=== PATIENT | female | born 1950 | race Caucasian/White ===

== ENCOUNTER → 2016-04-22 | Outpatient (CLI) | payer MEDICARE, OTHER, SELFPAY | LOC: MW.RT 19:45 | CPT/HCPCS: 95810 ==

== ENCOUNTER 2018-10-21 19:33 | Observation (INO) | payer MEDICARE, OTHER ==
[2018-10-21] MEDS ORDERED: Ondansetron 4 MG/2 ML SDV IVPUSH ONE (19:46)
[2018-10-21] MEDS ORDERED: diphenhydrAMINE 50 MG/ML SDV IVPUSH ONE (19:46)
[2018-10-21] MEDS ORDERED: Aspirin 81 MG Tab.Chew PO ONE (19:46)
[2018-10-21] MEDS ORDERED: Sodium Chloride 0.9% 2.5 ML Syringe FLUSH PRN (19:46)
[2018-10-21] MEDS ORDERED: Sodium Chloride 0.9% 10 ML Syringe FLUSH PRN (19:46)
[2018-10-21] MEDS ORDERED: methylPREDNISolone Sodium Succinate 125 MG/2 ML SDV IVPUSH ONE (19:51)
--- NOTE | 2018-10-21 20:07 | EDM.PDOC ---
ED HPI GENERAL MEDICAL PROBLEM - General Chief Complaint: Chest Pain Stated Complaint: CHEST PAIN Time Seen by Provider: 10/21/18 19:41 - History of Present Illness INITIAL COMMENTS - FREE TEXT/NARRATIVE: HISTORY AND PHYSICAL: History of present illness: Patient is 68-year-old white female history of atrial fibrillation presents with concern of chest pain this is left-sided and also radiates to her left infrascapular region she's had nausea and vomiting she denies associated palpitations or diaphoresis she has had some exertional dyspnea. She denies prior CA or CVA Review of systems: As per history of present illness and below otherwise all systems reviewed and negative. Past medical history: As per history of present illness and as reviewed below otherwise noncontributory. Surgical history: As per history of present illness and as reviewed below otherwise noncontributory. Social history: No reported history of drug or alcohol abuse. Family history: As per history of present illness and as reviewed below otherwise noncontributory. Physical exam: HEENT: Atraumatic, normocephalic, pupils reactive, negative for conjunctival pallor or scleral icterus, mucous membranes moist, throat clear, neck supple, nontender, trachea midline. Lungs: Clear to auscultation, breath sounds equal bilaterally, chest nontender. Heart: S1S2, regular, negative for clicks, rubs, or JVD. Abdomen: Soft, nondistended, nontender. Negative for masses or hepatosplenomegaly. Negative for costovertebral tenderness. Pelvis: Stable nontender. Genitourinary: Deferred. Rectal: Deferred. Extremities: Atraumatic, negative for cords or calf pain. Neurovascular unremarkable. Neuro: Awake, alert, oriented. Cranial nerves II through XII unremarkable. Cerebellum unremarkable. Motor and sensory unremarkable throughout. Exam nonfocal. Diagnostics: CBC CMP troponin PT/INR CTA chest BNP lipase Therapeutics: 1 L bolus nitro paste 1 inch to chest wall Zofran 4 mg IV Solu-Medrol 25 mg IV Benadryl 50 mg IV aspirin Impression: #1 chest pain #2 history of atrial fibrillation #3 vomiting Definitive disposition and diagnosis as appropriate pending reevaluation and review of above. Chest Pain Score (Numeric/FACES): 2 - Related Data Allergies Allergy/AdvReac Type Severity Reaction Status Date / Time cefaclor [facility] Allergy Unknown Hives Verified 10/22/18 07:12 oxaprozin [From [facility]] Allergy Unknown Hives Verified 10/22/18 07:12 sulfamethoxazole Allergy Unknown Redness Verified 10/22/18 07:12 [From Bactrim] trimethoprim [From Bactrim] Allergy Unknown Hives Verified 10/22/18 07:12 hydromorphone HCl Allergy Disorientat Verified 10/22/18 07:12 [From Dilaudid] ion Home Meds: Home Meds Levothyroxine Sodium 50 mcg PO DAILY 06/22/13 [History] Omeprazole [Prilosec] 20 mg PO ASDIRECTED 11/06/13 [History] Aspirin 81 mg PO DAILY 10/21/18 [History] Metoprolol Succinate [Kapspargo Sprinkle] 25 mg PO DAILY 10/21/18 [History] Propafenone HCl [Propafenone] 300 mg PO DAILY 10/21/18 [History] Cetirizine HCl [Zyrtec] 10 mg PO DAILY 10/22/18 [History] Cholecalciferol (Vitamin D3) [Vitamin D3] 5,000 unit PO DAILY 10/22/18 [History] Past Medical History HEENT History: Reports: None Cardiovascular History: Reports: Afib Respiratory History: Reports: Asthma Gastrointestinal History: Reports: GERD Genitourinary History: Reports: None [employer] History: Reports: None Musculoskeletal History: Reports: None Neurological History: Reports: None Psychiatric History: Reports: None Endocrine/Metabolic History: Reports: None Hematologic History: Reports: None Immunologic History: Reports: None Oncologic (Cancer) History: Reports: None Dermatologic History: Reports: None - Infectious Disease History Infectious Disease History: Reports: None Social & Family History - Tobacco Use Smoking Status *Q: Never Smoker - Recreational Drug Use Recreational Drug Use: No ED ROS GENERAL - Review of Systems Review Of Systems: ROS reveals no pertinent complaints other than HPI. ED EXAM, GENERAL - Physical Exam Exam: See Below (See dictation) Course - Vital Signs Last Recorded V/S: Last Vital Signs Temp 36.2 C 10/22/18 12:00 Pulse 73 10/22/18 12:00 Resp 18 10/22/18 12:00 BP 122/53 L 10/22/18 12:00 Pulse Ox 98 10/22/18 12:00 - Orders/Labs/Meds Orders: Active Orders 24 hr Category Date Time Status CULTURE URINE [RM] Stat Lab 10/21/18 21:43 Received Labs: Laboratory Tests 10/21/18 10/21/18 10/21/18 Range/Units 19:38 19:38 19:38 WBC 8.90 (4.0-11.0) K/uL RBC 4.72 (4.30-5.90) M/uL Hgb 14.7 (12.0-16.0) g/dL Hct 45.5 (36.0-46.0) % MCV 96.4 (80.0-98.0) fL MCH 31.1 (27.0-32.0) pg MCHC 32.3 (31.0-37.0) g/dL RDW Std Deviation 51.7 (28.0-62.0) fl RDW Coeff of Anil 15 (11.0-15.0) % Plt Count 279 (150-400) K/uL MPV 9.00 (7.40-12.00) fL Neut % (Auto) 80.7 H (48.0-80.0) % Lymph % (Auto) 15.1 L (16.0-40.0) % Isabela % (Auto) 2.4 (0.0-15.0) % Eos % (Auto) 1.6 (0.0-7.0) % Baso % (Auto) 0.2 (0.0-1.5) % Neut # (Auto) 7.2 H (1.4-5.7) K/uL Lymph # (Auto) 1.3 (0.6-2.4) K/uL Isabela # (Auto) 0.2 (0.0-0.8) K/uL Eos # (Auto) 0.1 (0.0-0.7) K/uL Baso # (Auto) 0.0 (0.0-0.1) K/uL Nucleated RBC % 0.0 /100WBC Nucleated RBCs # 0 K/uL INR 0.94 Sodium 139 (136-145) mmol/L Potassium 3.9 (3.5-5.1) mmol/L Chloride 104 (98-107) mmol/L Carbon Dioxide 25.0 (21.0-32.0) mmol/L BUN 19 H (7.0-18.0) mg/dL Creatinine 0.7 (0.6-1.0) mg/dL Est Cr Clr Drug Dosing 67.34 mL/min Estimated GFR (MDRD) > 60.0 ml/min Glucose 123 H (74-106) mg/dL Calcium 8.9 (8.5-10.1) mg/dL Total Bilirubin 0.5 (0.2-1.0) mg/dL AST 16 (15-37) IU/L ALT 22 (14-63) IU/L Alkaline Phosphatase 76 (46-116) U/L Troponin I < 0.050 (0.000-0.056) ng/mL B-Natriuretic Peptide (<100) PG/ML Total Protein 6.1 L (6.4-8.2) g/dL Albumin 3.2 L (3.4-5.0) g/dL Globulin 2.9 (2.6-4.0) g/dL Albumin/Globulin Ratio 1.1 (0.9-1.6) Lipase 799 H (73-393) U/L Urine Color Urine Appearance Urine pH (5.0-8.0) Ur Specific [place] (1.001-1.035) Urine Protein (NEGATIVE) mg/dL Urine Glucose (UA) (NEGATIVE) mg/dL Urine Ketones (NEGATIVE) mg/dL Urine Occult Blood (NEGATIVE) Urine Nitrite (NEGATIVE) Urine Bilirubin (NEGATIVE) Urine Urobilinogen (<2.0) EU/dL Ur Leukocyte Esterase (NEGATIVE) Urine RBC (0-2/HPF) Urine WBC (0-5/HPF) Ur Epithelial Cells (NONE-FEW) Urine Bacteria (NEGATIVE) 10/21/18 10/21/18 Range/Units 19:38 21:43 WBC (4.0-11.0) K/uL RBC (4.30-5.90) M/uL Hgb (12.0-16.0) g/dL Hct (36.0-46.0) % MCV (80.0-98.0) fL MCH (27.0-32.0) pg MCHC (31.0-37.0) g/dL RDW Std Deviation (28.0-62.0) fl RDW Coeff of Anil (11.0-15.0) % Plt Count (150-400) K/uL MPV (7.40-12.00) fL Neut % (Auto) (48.0-80.0) % Lymph % (Auto) (16.0-40.0) % Isabela % (Auto) (0.0-15.0) % Eos % (Auto) (0.0-7.0) % Baso % (Auto) (0.0-1.5) % Neut # (Auto) (1.4-5.7) K/uL Lymph # (Auto) (0.6-2.4) K/uL [place] # (Auto) (0.0-0.8) K/uL Eos # (Auto) (0.0-0.7) K/uL Baso # (Auto) (0.0-0.1) K/uL Nucleated RBC % /100WBC Nucleated RBCs # K/uL INR Sodium (136-145) mmol/L Potassium (3.5-5.1) mmol/L Chloride (98-107) mmol/L Carbon Dioxide (21.0-32.0) mmol/L BUN (7.0-18.0) mg/dL Creatinine (0.6-1.0) mg/dL Est Cr Clr Drug Dosing mL/min Estimated GFR (MDRD) ml/min Glucose (74-106) mg/dL Calcium (8.5-10.1) mg/dL Total Bilirubin (0.2-1.0) mg/dL AST (15-37) IU/L ALT (14-63) IU/L Alkaline Phosphatase (46-116) U/L Troponin I (0.000-0.056) ng/mL B-Natriuretic Peptide 86 (<100) PG/ML Total Protein (6.4-8.2) g/dL Albumin (3.4-5.0) g/dL Globulin (2.6-4.0) g/dL Albumin/Globulin Ratio (0.9-1.6) Lipase (73-393) U/L Urine Color YELLOW Urine Appearance SLT CLOUDY Urine pH 5.5 (5.0-8.0) Ur Specific [place] 1.010 (1.001-1.035) Urine Protein NEGATIVE (NEGATIVE) mg/dL Urine Glucose (UA) NEGATIVE (NEGATIVE) mg/dL Urine Ketones NEGATIVE (NEGATIVE) mg/dL Urine Occult Blood NEGATIVE (NEGATIVE) Urine Nitrite NEGATIVE (NEGATIVE) Urine Bilirubin NEGATIVE (NEGATIVE) Urine Urobilinogen 0.2 (<2.0) EU/dL Ur Leukocyte Esterase TRACE H (NEGATIVE) Urine RBC 0-2 (0-2/HPF) Urine WBC 2-4 (0-5/HPF) Ur Epithelial Cells FEW (NONE-FEW) Urine Bacteria FEW (NEGATIVE) Meds: Medications Discontinued Medications Generic Name Dose Route Start Last Admin Trade Name Freq PRN Reason Stop Dose Admin Aspirin 324 mg 10/21/18 19:46 10/21/18 20:00 Aspirin PO 10/21/18 19:47 324 mg ONETIME ONE Administration Diphenhydramine HCl 50 mg 10/21/18 19:46 10/21/18 20:05 Benadryl IVPUSH 10/21/18 19:47 50 mg ONETIME ONE Administration Sodium Chloride 1,000 mls @ 999 mls/hr 10/21/18 20:08 10/21/18 20:05 Normal Saline IV 10/21/18 21:08 999 mls/hr .Bolus ONE Administration Sodium Chloride 1,000 mls @ 999 mls/hr 10/21/18 23:49 10/21/18 23:56 Normal Saline IV 10/22/18 00:49 999 mls/hr .Bolus ONE Administration Sodium Chloride 1,000 mls @ 125 mls/hr 10/22/18 01:30 10/22/18 08:58 Normal Saline IV 125 mls/hr ASDIRECTED ROZ Administration Iopamidol 75 ml 10/21/18 21:17 10/21/18 21:18 Isovue-370 (76%) IVPUSH 10/21/18 21:18 75 ml ONETIME ONE Administration Methylprednisolone Sodium Succinate 125 mg 10/21/18 19:51 10/21/18 20:08 Solu-Medrol IVPUSH 10/21/18 19:52 125 mg ONETIME ONE Administration Omeprazole 20 mg 10/23/18 07:30 Omeprazole PO Q48H ROZ Ondansetron HCl 4 mg 10/21/18 19:46 10/21/18 20:01 Zofran IVPUSH 10/21/18 19:47 4 mg ONETIME ONE Administration Aspirin [Aspirin] 81 1 each 10/22/18 11:00 10/22/18 11:43 Mg PO 1 each DAILY ROZ Administration Levothyroxine Sodium 1 each 10/22/18 11:00 10/22/18 11:43 [Levothyroxine PO 1 each Sodium] 50 Mcg ACBREAKFAST ROZ Administration Metoprolol Succinate 1 each 10/22/18 11:00 10/22/18 11:43 [Kapspargo Sprinkle PO 1 each ] 25 Mg DAILY ROZ Administration Propafenone HCl 300 mg 10/22/18 18:00 Rythmol PO QPM ROZ Sodium Chloride 10 ml 10/21/18 19:46 10/21/18 20:08 Saline Flush FLUSH 10 ml ASDIRECTED PRN Administration Keep Vein Open Sodium Chloride 2.5 ml 10/21/18 19:46 10/21/18 20:08 Saline Flush FLUSH 2.5 ml ASDIRECTED PRN Administration Keep Vein Open Departure - Departure Time of Disposition: 22:39 Disposition: Refer to Observation Condition: Good Clinical Impression: Chest pain, Pancreatitis - Discharge Information - My Orders Last 24 Hours: My Active Orders 10/21/18 21:43 CULTURE URINE [RM] Stat - Assessment/Plan Last 24 Hours: My Active Orders 10/21/18 21:43 CULTURE URINE [RM] Stat
[2018-10-21] MEDS ORDERED: Sodium Chloride 0.9% 1,000 ML IV ONE ×2 (20:08→23:49)
[2018-10-21 20:17] LABS: CHLORIDE,CL 104 mmol/L (98-107); SODIUM,NA 139 mmol/L (136-145)
[2018-10-21] MEDS ORDERED: Iopamidol 755 Mg/ML 100 ML Bottle IVPUSH ONE (21:17)
--- NOTE | 2018-10-21 22:30 | CT ---
INDICATION: Vomiting, chest pain TECHNIQUE: CT chest was acquired with 75 cc Isovue 370 IV contrast. COMPARISON: None FINDINGS: Cardiovascular structures: Heart size is normal. Thoracic aorta and main pulmonary artery are normal in caliber. Mediastinum and shira: No mass or adenopathy. Small hiatal hernia. Lungs: Clear. Pleura and pericardium: No effusions. Chest wall and axilla: No mass or adenopathy. Upper abdomen: Fluid filled, nondilated loops of colon. There are few colonic diverticula. There are also fluid filled loops of small bowel reaching a maximum diameter of 3.5 cm. Bones: No significant findings. IMPRESSION: No acute intrathoracic abnormality. Dilated loops of fluid-filled small bowel and fluid filled nondilated loops of colon. These findings could be due to obstruction or ileus. Consider CT abdomen pelvis for further evaluation. Small hiatal hernia. Please note that all CT scans at this facility use dose modulation, iterative reconstruction, and/or weight-based dosing when appropriate to reduce radiation dose to as low as reasonably achievable. Dictated by Chaya Avelar MD @ Oct 21 2018 10:07PM Signed by Dr. Chaya Avelar @ Oct 21 2018 10:28PM
[2018-10-22] MEDS: Sodium Chloride 0.9% 1,000 ML IV SCH ×2 (01:45→08:58)
[2018-10-22 07:56] LABS: CHLORIDE,CL 108 mmol/L (98-107); SODIUM,NA 140 mmol/L (136-145)
[2018-10-22] MEDS ORDERED: METOPROLOL SUCCINATE 25 MG PO SCH (11:00)
[2018-10-22] MEDS ORDERED: LEVOTHYROXINE SODIUM 50 MCG PO SCH (11:00)
[2018-10-22] MEDS ORDERED: ASPIRIN 81 MG PO SCH (11:00)
--- NOTE | 2018-10-22 11:54 | CT ---
Examination: CT Abdomen/Pelvis Indication: Diffuse abdominal pain. Comparison: Chest CT 1 day prior Technique: Contiguous axial CT images of the abdomen and pelvis were acquired after uneventful administration of IV contrast. Coronal and sagittal reformations generated and reviewed. Findings: On the prior chest CT, multiple dilated loops of small bowel were noted in the upper abdomen, concerning for obstruction or ileus. On the current exam, the small bowel distension is essentially resolved. Oral contrast is noted in the colon suggesting that there is no obstruction present. There is no bowel wall thickening. There is sigmoid diverticulosis without CT evidence of diverticulitis. Noncontrast appearance of liver, gallbladder, spleen, adrenal glands, and kidneys are unremarkable. Normal caliber of the abdominal aorta. Iliac veins and IVC are unremarkable. There is no enlarged inguinal, pelvic, retroperitoneal, or mesenteric lymphadenopathy. No pneumoperitoneum or free fluid. There is contrast in the urinary bladder. Uterus is unremarkable. Multiple phleboliths are noted in the pelvis. Visualized lung bases demonstrate some minimal dependent atelectasis. On the prior exam there is a large sliding hiatal hernia which is significantly decreased in size on the current examination. There are no acute or aggressive osseous abnormality is noted. Impression: 1. Bowel distention question on recent chest CT has resolved. There is no evidence of bowel obstruction or ileus. 2. No cause of abdominal pain identified. The appendix is normal. 3. Diverticulosis. No CT evidence of diverticulitis. Please note that all CT scans at this facility use dose modulation, iterative reconstruction, and/or weight-based dosing when appropriate to reduce radiation dose to as low as reasonably achievable. Dictated by Narciso Brown MD @ Oct 22 2018 11:43AM Signed by Dr. Narciso Brown @ Oct 22 2018 11:53AM
[2018-10-22 12:02] VITALS: BP 122/53
--- NOTE | 2018-10-22 12:11 | US ---
Exam: US right upper quadrant Comparison: CT from the same day Indication: Right upper quadrant pain Technique: Multiple grayscale and color Doppler images of the right upper quadrant are acquired. Findings: Liver: Normal liver echogenicity and contour. No liver lesions. No intra or extrahepatic biliary dilation. Common bile duct measures 3 mm. Gallbladder: No gallstones or sludge. No gallbladder wall thickening. No pericholecystic fluid. No sonographic Jade`s sign. Pancreas: Visualized portions are unremarkable. Right kidney: Limited views of the right kidney show no pelvocaliectasis. Right kidney measures 9.5 cm Impression: Unremarkable right upper quadrant ultrasound. Dictated by Narciso Brown MD @ Oct 22 2018 12:07PM Signed by Dr. Narciso Brown @ Oct 22 2018 12:08PM
--- NOTE | 2018-10-22 12:27 | PCM.HP.2 ---
H&P History of Present Illness - General Date of Service: 10/22/18 Admit Problem/Dx: Admission Diagnosis/Problem Admission Diagnosis/Problem Chest pain, rule out acute myocardial infarction Source of Information: Patient History Limitations: Reports: No Limitations - History of Present Illness Initial Comments - Free Text/Narative: patient is a 68-year-old female with a past medical history of hypothyroidism, atrial fibrillation, GERD and asthma; presenting last night with left-sided chest pain and pain radiating between her shoulder blades. Patient denied any palpitations and/or diaphoresis. Prior to pain developing states she was vomiting 5-6 times; nonbilious. Otherwise patient denies any shortness of breath , headache, confusion, diarrhea and/or constipation. Of note patient states she recently returned from [place]/vacation; states she ate and drank more alcohol during her six-day trip more than she normally does. Patient also states that she has had normal cholesterol in the past, no history of gallstones or significant history of alcohol abuse. Patient has not had episodes like this before in the past but has had palpitations secondary to her A. fib. Bedside a.m.: patient denies any new complaints. States she is feeling comfortable. Patient has no concerns at this time. Chest Pain Score (Numeric/FACES): 0 - Related Data Allergies/Adverse Reactions: Allergies Allergy/AdvReac Type Severity Reaction Status Date / Time cefaclor [From Ceclor] Allergy Unknown Hives Verified 10/22/18 07:12 oxaprozin [From Daypro] Allergy Unknown Hives Verified 10/22/18 07:12 sulfamethoxazole Allergy Unknown Redness Verified 10/22/18 07:12 [From Bactrim] trimethoprim [From Bactrim] Allergy Unknown Hives Verified 10/22/18 07:12 hydromorphone HCl Allergy Disorientat Verified 10/22/18 07:12 [From Dilaudid] ion Home Medications: Home Meds Levothyroxine Sodium 50 mcg PO DAILY 06/22/13 [History] Omeprazole [Prilosec] 20 mg PO ASDIRECTED 11/06/13 [History] Aspirin 81 mg PO DAILY 10/21/18 [History] Metoprolol Succinate [Kapspargo Sprinkle] 25 mg PO DAILY 10/21/18 [History] Propafenone HCl [Propafenone] 300 mg PO DAILY 10/21/18 [History] Cetirizine HCl [Zyrtec] 10 mg PO DAILY 10/22/18 [History] Cholecalciferol (Vitamin D3) [Vitamin D3] 5,000 unit PO DAILY 10/22/18 [History] Past Medical History HEENT History: Reports: Allergic Rhinitis, Impaired Vision Other HEENT History: glasses Cardiovascular History: Reports: Afib, Hypertension, SOB on Exertion, Other ( See Below) Other Cardiovascular History: lymphedema bilateral legs Respiratory History: Reports: Sleep Apnea Other Respiratory History: wears CPAP at home Gastrointestinal History: Reports: GERD Genitourinary History: Reports: None [employer] History: Reports: None Musculoskeletal History: Reports: Back Pain, Chronic, Osteoarthritis Other Musculoskeletal History: lumbar steriod injections- last one 09/22/18 Neurological History: Reports: None Psychiatric History: Reports: None Endocrine/Metabolic History: Reports: Hypothyroidism, Vitamin D Deficiency Hematologic History: Reports: None Immunologic History: Reports: None Oncologic (Cancer) History: Reports: None Dermatologic History: Reports: None - Infectious Disease History Infectious Disease History: Reports: None - Past Surgical History Musculoskeletal Surgical History: Reports: Knee Replacement Other Musculoskeletal Surgeries/Procedures:: bilateral KR Social & Family History - Family History Family Medical History: Noncontributory Cardiac: Reports: IN - Tobacco Use Smoking Status *Q: Never Smoker Second Hand Smoke Exposure: No - Caffeine Use Caffeine Use: Reports: Coffee - Alcohol Use Days Per Week of Alcohol Use: 1 Number of Drinks Per Day: 1 Total Drinks Per Week: 1 Alcohol Use Frequency: Socially (drinks more during vacation) - Recreational Drug Use Recreational Drug Use: No H&P Review of Systems - Review of Systems: Review Of Systems: See Below General: Reports: No Symptoms HEENT: Reports: No Symptoms Pulmonary: Reports: No Symptoms Cardiovascular: Reports: No Symptoms Gastrointestinal: Reports: No Symptoms Musculoskeletal: Reports: No Symptoms Skin: Reports: Other (chronic lower extremity lymphedema/stable) Psychiatric: Denies: Confusion, Depression Neurological: Denies: Confusion, Dizziness Immunologic: Reports: No Symptoms Exam - Exam Exam: See Below - Vital Signs Vital Signs: Last Vital Signs Temp 97.1 F 10/22/18 12:00 Pulse 73 10/22/18 12:00 Resp 18 10/22/18 12:00 BP 122/53 L 10/22/18 12:00 Pulse Ox 98 10/22/18 12:00 Weight: 224 lb 2 oz - Exam Quality Assessment: No: Supplemental Oxygen General: Alert, Oriented HEENT: EOMI Neck: Supple Lungs: Clear to Auscultation, Normal Respiratory Effort Cardiovascular: Regular Rate, Regular Rhythm GI/Abdominal Exam: Normal Bowel Sounds, Soft, Non-Tender, No Organomegaly, No Distention Extremities: Other (lower extremity swelling nonpitting edema; consistent with chronic lymphedema; worse on the left compared to right. Range of motion intact) Skin: Warm, Intact Neurological: Normal Speech Neuro Extensive - Mental Status: Alert, Oriented x3, Normal Mood/Affect Psychiatric: Alert, Normal Affect, Normal Mood - Patient Data Lab Results Last 24 hrs: Laboratory Results - last 24 hr 10/21/18 10/21/18 10/21/18 Range/Units 19:38 19:38 19:38 WBC 8.90 (4.0-11.0) K/uL RBC 4.72 (4.30-5.90) M/uL Hgb 14.7 (12.0-16.0) g/dL Hct 45.5 (36.0-46.0) % MCV 96.4 (80.0-98.0) fL MCH 31.1 (27.0-32.0) pg MCHC 32.3 (31.0-37.0) g/dL RDW Std Deviation 51.7 (28.0-62.0) fl RDW Coeff of Anil 15 (11.0-15.0) % Plt Count 279 (150-400) K/uL MPV 9.00 (7.40-12.00) fL Neut % (Auto) 80.7 H (48.0-80.0) % Lymph % (Auto) 15.1 L (16.0-40.0) % [place] % (Auto) 2.4 (0.0-15.0) % Eos % (Auto) 1.6 (0.0-7.0) % Baso % (Auto) 0.2 (0.0-1.5) % Neut # (Auto) 7.2 H (1.4-5.7) K/uL Lymph # (Auto) 1.3 (0.6-2.4) K/uL [place] # (Auto) 0.2 (0.0-0.8) K/uL Eos # (Auto) 0.1 (0.0-0.7) K/uL Baso # (Auto) 0.0 (0.0-0.1) K/uL Nucleated RBC % 0.0 /100WBC Nucleated RBCs # 0 K/uL INR 0.94 Sodium 139 (136-145) mmol/L Potassium 3.9 (3.5-5.1) mmol/L Chloride 104 (98-107) mmol/L Carbon Dioxide 25.0 (21.0-32.0) mmol/L BUN 19 H (7.0-18.0) mg/dL Creatinine 0.7 (0.6-1.0) mg/dL Est Cr Clr Drug Dosing 67.34 mL/min Estimated GFR (MDRD) > 60.0 ml/min Glucose 123 H (74-106) mg/dL Calcium 8.9 (8.5-10.1) mg/dL Total Bilirubin 0.5 (0.2-1.0) mg/dL AST 16 (15-37) IU/L ALT 22 (14-63) IU/L Alkaline Phosphatase 76 (46-116) U/L Troponin I < 0.050 (0.000-0.056) ng/mL B-Natriuretic Peptide (<100) PG/ML Total Protein 6.1 L (6.4-8.2) g/dL Albumin 3.2 L (3.4-5.0) g/dL Globulin 2.9 (2.6-4.0) g/dL Albumin/Globulin Ratio 1.1 (0.9-1.6) Triglycerides (0-200) mg/dL Cholesterol (50-200) mg/dL LDL Cholesterol, Calc (60-180) mg/dL VLDL Cholesterol (5-55) mg/dL HDL Cholesterol (40-60) mg/dL Cholesterol/HDL Ratio (3.3-6.0) Lipase 799 H (73-393) U/L Urine Color Urine Appearance Urine pH (5.0-8.0) Ur Specific [place] (1.001-1.035) Urine Protein (NEGATIVE) mg/dL Urine Glucose (UA) (NEGATIVE) mg/dL Urine Ketones (NEGATIVE) mg/dL Urine Occult Blood (NEGATIVE) Urine Nitrite (NEGATIVE) Urine Bilirubin (NEGATIVE) Urine Urobilinogen (<2.0) EU/dL Ur Leukocyte Esterase (NEGATIVE) Urine RBC (0-2/HPF) Urine WBC (0-5/HPF) Ur Epithelial Cells (NONE-FEW) Urine Bacteria (NEGATIVE) 10/21/18 10/21/18 10/22/18 Range/Units 19:38 21:43 01:25 WBC (4.0-11.0) K/uL RBC (4.30-5.90) M/uL Hgb (12.0-16.0) g/dL Hct (36.0-46.0) % MCV (80.0-98.0) fL MCH (27.0-32.0) pg MCHC (31.0-37.0) g/dL RDW Std Deviation (28.0-62.0) fl RDW Coeff of Anil (11.0-15.0) % Plt Count (150-400) K/uL MPV (7.40-12.00) fL Neut % (Auto) (48.0-80.0) % Lymph % (Auto) (16.0-40.0) % [place] % (Auto) (0.0-15.0) % Eos % (Auto) (0.0-7.0) % Baso % (Auto) (0.0-1.5) % Neut # (Auto) (1.4-5.7) K/uL Lymph # (Auto) (0.6-2.4) K/uL [place] # (Auto) (0.0-0.8) K/uL Eos # (Auto) (0.0-0.7) K/uL Baso # (Auto) (0.0-0.1) K/uL Nucleated RBC % /100WBC Nucleated RBCs # K/uL INR Sodium (136-145) mmol/L Potassium (3.5-5.1) mmol/L Chloride (98-107) mmol/L Carbon Dioxide (21.0-32.0) mmol/L BUN (7.0-18.0) mg/dL Creatinine (0.6-1.0) mg/dL Est Cr Clr Drug Dosing mL/min Estimated GFR (MDRD) ml/min Glucose (74-106) mg/dL Calcium (8.5-10.1) mg/dL Total Bilirubin (0.2-1.0) mg/dL AST (15-37) IU/L ALT (14-63) IU/L Alkaline Phosphatase (46-116) U/L Troponin I < 0.050 (0.000-0.056) ng/mL B-Natriuretic Peptide 86 (<100) PG/ML Total Protein (6.4-8.2) g/dL Albumin (3.4-5.0) g/dL Globulin (2.6-4.0) g/dL Albumin/Globulin Ratio (0.9-1.6) Triglycerides (0-200) mg/dL Cholesterol (50-200) mg/dL LDL Cholesterol, Calc (60-180) mg/dL VLDL Cholesterol (5-55) mg/dL HDL Cholesterol (40-60) mg/dL Cholesterol/HDL Ratio (3.3-6.0) Lipase (73-393) U/L Urine Color YELLOW Urine Appearance SLT CLOUDY Urine pH 5.5 (5.0-8.0) Ur Specific [place] 1.010 (1.001-1.035) Urine Protein NEGATIVE (NEGATIVE) mg/dL Urine Glucose (UA) NEGATIVE (NEGATIVE) mg/dL Urine Ketones NEGATIVE (NEGATIVE) mg/dL Urine Occult Blood NEGATIVE (NEGATIVE) Urine Nitrite NEGATIVE (NEGATIVE) Urine Bilirubin NEGATIVE (NEGATIVE) Urine Urobilinogen 0.2 (<2.0) EU/dL Ur Leukocyte Esterase TRACE H (NEGATIVE) Urine RBC 0-2 (0-2/HPF) Urine WBC 2-4 (0-5/HPF) Ur Epithelial Cells FEW (NONE-FEW) Urine Bacteria FEW (NEGATIVE) 10/22/18 10/22/18 10/22/18 Range/Units 07:30 07:30 07:30 WBC 7.22 (4.0-11.0) K/uL RBC 3.97 L (4.30-5.90) M/uL Hgb 12.3 (12.0-16.0) g/dL Hct 38.4 (36.0-46.0) % MCV 96.7 (80.0-98.0) fL MCH 31.0 (27.0-32.0) pg MCHC 32.0 (31.0-37.0) g/dL RDW Std Deviation 52.1 (28.0-62.0) fl RDW Coeff of Anil 15 (11.0-15.0) % Plt Count 233 (150-400) K/uL MPV 8.70 (7.40-12.00) fL Neut % (Auto) 91.7 H (48.0-80.0) % Lymph % (Auto) 5.5 L (16.0-40.0) % [place] % (Auto) 2.8 (0.0-15.0) % Eos % (Auto) 0.0 (0.0-7.0) % Baso % (Auto) 0.0 (0.0-1.5) % Neut # (Auto) 6.6 H (1.4-5.7) K/uL Lymph # (Auto) 0.4 L (0.6-2.4) K/uL [place] # (Auto) 0.2 (0.0-0.8) K/uL Eos # (Auto) 0.0 (0.0-0.7) K/uL Baso # (Auto) 0.0 (0.0-0.1) K/uL Nucleated RBC % 0.0 /100WBC Nucleated RBCs # 0 K/uL INR Sodium 140 (136-145) mmol/L Potassium 4.1 (3.5-5.1) mmol/L Chloride 108 H (98-107) mmol/L Carbon Dioxide 23.4 (21.0-32.0) mmol/L BUN 17 (7.0-18.0) mg/dL Creatinine 0.6 (0.6-1.0) mg/dL Est Cr Clr Drug Dosing 78.57 mL/min Estimated GFR (MDRD) > 60.0 ml/min Glucose 149 H (74-106) mg/dL Calcium 8.0 L (8.5-10.1) mg/dL Total Bilirubin 0.6 (0.2-1.0) mg/dL AST 13 L (15-37) IU/L ALT 17 (14-63) IU/L Alkaline Phosphatase 50 (46-116) U/L Troponin I < 0.050 (0.000-0.056) ng/mL B-Natriuretic Peptide (<100) PG/ML Total Protein 4.8 L (6.4-8.2) g/dL Albumin 2.4 L (3.4-5.0) g/dL Globulin 2.4 L (2.6-4.0) g/dL Albumin/Globulin Ratio 1.0 (0.9-1.6) Triglycerides (0-200) mg/dL Cholesterol (50-200) mg/dL LDL Cholesterol, Calc (60-180) mg/dL VLDL Cholesterol (5-55) mg/dL HDL Cholesterol (40-60) mg/dL Cholesterol/HDL Ratio (3.3-6.0) Lipase (73-393) U/L Urine Color Urine Appearance Urine pH (5.0-8.0) Ur Specific [place] (1.001-1.035) Urine Protein (NEGATIVE) mg/dL Urine Glucose (UA) (NEGATIVE) mg/dL Urine Ketones (NEGATIVE) mg/dL Urine Occult Blood (NEGATIVE) Urine Nitrite (NEGATIVE) Urine Bilirubin (NEGATIVE) Urine Urobilinogen (<2.0) EU/dL Ur Leukocyte Esterase (NEGATIVE) Urine RBC (0-2/HPF) Urine WBC (0-5/HPF) Ur Epithelial Cells (NONE-FEW) Urine Bacteria (NEGATIVE) 10/22/18 Range/Units 07:30 WBC (4.0-11.0) K/uL RBC (4.30-5.90) M/uL Hgb (12.0-16.0) g/dL Hct (36.0-46.0) % MCV (80.0-98.0) fL MCH (27.0-32.0) pg MCHC (31.0-37.0) g/dL RDW Std Deviation (28.0-62.0) fl RDW Coeff of Anil (11.0-15.0) % Plt Count (150-400) K/uL MPV (7.40-12.00) fL Neut % (Auto) (48.0-80.0) % Lymph % (Auto) (16.0-40.0) % [place] % (Auto) (0.0-15.0) % Eos % (Auto) (0.0-7.0) % Baso % (Auto) (0.0-1.5) % Neut # (Auto) (1.4-5.7) K/uL Lymph # (Auto) (0.6-2.4) K/uL [place] # (Auto) (0.0-0.8) K/uL Eos # (Auto) (0.0-0.7) K/uL Baso # (Auto) (0.0-0.1) K/uL Nucleated RBC % /100WBC Nucleated RBCs # K/uL INR Sodium (136-145) mmol/L Potassium (3.5-5.1) mmol/L Chloride (98-107) mmol/L Carbon Dioxide (21.0-32.0) mmol/L BUN (7.0-18.0) mg/dL Creatinine (0.6-1.0) mg/dL Est Cr Clr Drug Dosing mL/min Estimated GFR (MDRD) ml/min Glucose (74-106) mg/dL Calcium (8.5-10.1) mg/dL Total Bilirubin (0.2-1.0) mg/dL AST (15-37) IU/L ALT (14-63) IU/L Alkaline Phosphatase (46-116) U/L Troponin I (0.000-0.056) ng/mL B-Natriuretic Peptide (<100) PG/ML Total Protein (6.4-8.2) g/dL Albumin (3.4-5.0) g/dL Globulin (2.6-4.0) g/dL Albumin/Globulin Ratio (0.9-1.6) Triglycerides 26 (0-200) mg/dL Cholesterol 195 (50-200) mg/dL LDL Cholesterol, Calc 112 (60-180) mg/dL VLDL Cholesterol 5 (5-55) mg/dL HDL Cholesterol 78 H (40-60) mg/dL Cholesterol/HDL Ratio 2.5 L (3.3-6.0) Lipase (73-393) U/L Urine Color Urine Appearance Urine pH (5.0-8.0) Ur Specific [place] (1.001-1.035) Urine Protein (NEGATIVE) mg/dL Urine Glucose (UA) (NEGATIVE) mg/dL Urine Ketones (NEGATIVE) mg/dL Urine Occult Blood (NEGATIVE) Urine Nitrite (NEGATIVE) Urine Bilirubin (NEGATIVE) Urine Urobilinogen (<2.0) EU/dL Ur Leukocyte Esterase (NEGATIVE) Urine RBC (0-2/HPF) Urine WBC (0-5/HPF) Ur Epithelial Cells (NONE-FEW) Urine Bacteria (NEGATIVE) Result Diagrams: 10/22/18 07:30 10/22/18 07:30 Problem List Initiated/Reviewed/Updated: Yes Orders Last 24hrs: Active Orders 24 hr Category Date Time Status Admission Status [Patient Status] [ADT] Stat ADT 10/21/18 23:31 Active Cardiac Monitoring [RC] Q8H Care 10/21/18 19:46 Active EKG Documentation Completion [RC] STAT Care 10/21/18 19:46 Active Pulse Oximetry [RC] ASDIRECTED Care 10/21/18 19:46 Active NPO [Nothing Per Oral Diet] [DIET] Diet 10/22/18 Breakfast Active CULTURE URINE [RM] Stat Lab 10/21/18 21:43 Received Omeprazole Med 10/23/18 07:30 Active 20 mg PO Q48H Patient's Own Medication [Ptom] Med 10/22/18 11:00 Active 1 each PO ACBREAKFAST Patient's Own Medication [Ptom] Med 10/22/18 11:00 Active 1 each PO DAILY Patient's Own Medication [Ptom] Med 10/22/18 11:00 Active 1 each PO DAILY Propafenone [Rythmol] Med 10/22/18 18:00 Active 300 mg PO QPM Sodium Chloride 0.9% [Normal Saline] 1,000 ml Med 10/22/18 01:30 Active IV ASDIRECTED Sodium Chloride 0.9% [Saline Flush] Med 10/21/18 19:46 Active 10 ml FLUSH ASDIRECTED PRN Sodium Chloride 0.9% [Saline Flush] Med 10/21/18 19:46 Active 2.5 ml FLUSH ASDIRECTED PRN Saline Lock Insert [OM.PC] Stat Oth 10/21/18 19:46 Ordered Medication Orders Sodium Chloride (Normal Saline) 1,000 mls @ 125 mls/hr IV ASDIRECTED ROZ Last Admin: 10/22/18 08:58 Dose: 125 mls/hr Infusion: 10/22/18 08:58 Dose: 125 mls/hr Admin: 10/22/18 01:45 Dose: 125 mls/hr Omeprazole (Omeprazole) 20 mg PO Q48H ROZ Aspirin [Aspirin] 81 (Mg) 1 each PO DAILY ROZ Last Admin: 10/22/18 11:43 Dose: 1 each Levothyroxine Sodium [Levothyroxine Sodium] 50 Mcg 1 each PO ACBREAKFAST [facility] Last Admin: 10/22/18 11:43 Dose: 1 each Metoprolol Succinate [Kapspargo Sprinkle ] 25 Mg 1 each PO DAILY [facility] Last Admin: 10/22/18 11:43 Dose: 1 each Propafenone HCl (Rythmol) 300 mg PO QPM [facility] Sodium Chloride (Saline Flush) 10 ml FLUSH ASDIRECTED PRN PRN Reason: Keep Vein Open Last Admin: 10/21/18 20:08 Dose: 10 ml Sodium Chloride (Saline Flush) 2.5 ml FLUSH ASDIRECTED PRN PRN Reason: Keep Vein Open Last Admin: 10/21/18 20:08 Dose: 2.5 ml Assessment/Plan Comment:: 1.chest pain: possibly secondary to ACS versus acute pancreatitis. (ELEVATED LIPASE) 2. Past medical history:, A. fib hypertension, GERD, chronic lower extremity lymphedema Plan: 1. Admit to observation. DNR/DNI. Diet: nothing by mouth/bowel rest until studies show otherwise. Activity: up ad aurora. DVT prophylaxis: SCDs. 2. Chest pain: troponin 3. CT chest negative; ordered CT abdomen pelvis; ultrasound gallbladder for stones. Lipid panel ordered. Continue all medications. continue IV fluids. if troponin, abdomen pelvis CT scan and ultrasound are negative; advised patient to reduce alcohol consumption and follow-up with PCP in one week. patient has colonoscopy scheduled in October.
--- NOTE | 2018-10-22 14:32 | PCM.DCSUM1 ---
<Jono Lagos - Last Filed: 10/22/18 14:25> Discharge Summary - Hospital Course Free Text/Narrative:: discharge summary 1. Admission date October 21, 2018 2. Discharge date October 22, 2018 3. Admission diagnosis chest pain: ACS rule out Elevated lipase 4. Discharge diagnosis chest pain: ACS rule out Elevated lipase 5. Consultations none 6. Procedures none 7. Hospital course patient is a 68-year-old female with a past medical history of atrial fibrillation, hypothyroidism, GERD, asthma; presenting yesterday with sudden onset chest pain radiating to her back between her shoulder blades with 6 episodes of nonbilious vomiting. Denies ever having similar symptoms in the past. Proceeded to the emergency department; admitted to the floor; ACS was ruled out with 3 negative troponins; chest x-ray showed no acute cardiomegaly, mild dilation of small bowel; subsequent CT abdomen and pelvis showed no obstruction. BMP negative. Lipase elevated. Ultrasound gallbladder negative. Lipid panel negative for elevated triglycerides. Patient states for the past couple of days she has been consuming more alcohol and eating more than usual; was on vacation. following morning; patient stable; denies any shortness of breath, chest pain, confusion, anxiety. Chronic lower extremity lymphedema stable. Patient tolerating food. Patient advised about alcohol consumption and proceeding forward bland diet. 8. Discharge condition stable 9. Disposition home 10. Discharge medications Levothyroxine Sodium 50 mcg PO DAILY 06/22/13 [History] Omeprazole [Prilosec] 20 mg PO ASDIRECTED 11/06/13 [History] Aspirin 81 mg PO DAILY 10/21/18 [History] Metoprolol Succinate [[place] Sprinkle] 25 mg PO DAILY 10/21/18 [History] Propafenone HCl [Propafenone] 300 mg PO DAILY 10/21/18 [History] Cetirizine HCl [Zyrtec] 10 mg PO DAILY 10/22/18 [History] Cholecalciferol (Vitamin D3) [Vitamin D3] 5,000 unit PO DAILY 10/22/18 [History] 11. Discharge instructions: patient advised to follow up primary care in 1 week. Advised to continue with bland diet and introduced regular food items as tolerated. Follow-up in October for scheduled colonoscopy. Advised to reduce alcohol consumption especially during acute episodes. Advised to contact provider if symptoms of fever, chills, body aches, chest pain, shortness of breath, increasing nausea, increasing vomiting or new symptoms develop. 12. Follow-up: PCP in one week - Discharge Data Discharge Date: 10/22/18 Discharge Disposition: Home, Self-Care 01 Condition: Stable - Patient Instructions Diet: Heart Healthy Diet (Continue to eat bland food and gradually introduce foods as tolerated ), No Alcoholic Beverages Activity: As Tolerated Driving: May Drive Today Showering/Bathing: May Shower Notify Provider of: Fever, Increased Pain, Swelling and Redness, Drainage, Nausea and/or Vomiting Other/Special Instructions: Contact providor if symptoms of chest pain, shortness of breath, uncontrollable pain , fever or other new symptoms develop. - Discharge Plan *PRESCRIPTION DRUG MONITORING PROGRAM REVIEWED*: No *COPY OF PRESCRIPTION DRUG MONITORING REPORT IN PATIENT ALBA: No Home Medications: Home Meds Levothyroxine Sodium 50 mcg PO DAILY 06/22/13 [History] Omeprazole [Prilosec] 20 mg PO ASDIRECTED 11/06/13 [History] Aspirin 81 mg PO DAILY 10/21/18 [History] Metoprolol Succinate [[place]sp[place] Sprinkle] 25 mg PO DAILY 10/21/18 [History] Propafenone HCl [Propafenone] 300 mg PO DAILY 10/21/18 [History] Cetirizine HCl [Zyrtec] 10 mg PO DAILY 10/22/18 [History] Cholecalciferol (Vitamin D3) [Vitamin D3] 5,000 unit PO DAILY 10/22/18 [History] Patient Handouts: Lipase Test, Nonspecific Chest Pain, [id number], [place] Diet Referrals: Anne Marie Mirza DO [Primary Care Provider] - (Call clinic on Wednesday10/25/18, and get 1 week follow-up with PCP.) - Discharge Summary/Plan Comment DC Time >30 min.: No - Patient Data Vitals - Most Recent: Last Vital Signs Temp 97.1 F 10/22/18 12:00 Pulse 73 10/22/18 12:00 Resp 18 10/22/18 12:00 BP 122/53 L 10/22/18 12:00 Pulse Ox 98 10/22/18 12:00 Weight - Most Recent: 101.661 kg I&O - Last 24 hours: Intake & Output 0810/22/18 10/22/18 22:59 06:59 14:59 Intake Total 0 717 Output Total 550 700 Balance -550 17 Lab Results - Last 24 hrs: Laboratory Results - last 24 hr 10/21/18 10/21/18 10/21/18 Range/Units 19:38 19:38 19:38 WBC 8.90 (4.0-11.0) K/uL RBC 4.72 (4.30-5.90) M/uL Hgb 14.7 (12.0-16.0) g/dL Hct 45.5 (36.0-46.0) % MCV 96.4 (80.0-98.0) fL MCH 31.1 (27.0-32.0) pg MCHC 32.3 (31.0-37.0) g/dL RDW Std Deviation 51.7 (28.0-62.0) fl RDW Coeff of Anil 15 (11.0-15.0) % Plt Count 279 (150-400) K/uL MPV 9.00 (7.40-12.00) fL Neut % (Auto) 80.7 H (48.0-80.0) % Lymph % (Auto) 15.1 L (16.0-40.0) % [place] % (Auto) 2.4 (0.0-15.0) % Eos % (Auto) 1.6 (0.0-7.0) % Baso % (Auto) 0.2 (0.0-1.5) % Neut # (Auto) 7.2 H (1.4-5.7) K/uL Lymph # (Auto) 1.3 (0.6-2.4) K/uL [place] # (Auto) 0.2 (0.0-0.8) K/uL Eos # (Auto) 0.1 (0.0-0.7) K/uL Baso # (Auto) 0.0 (0.0-0.1) K/uL Nucleated RBC % 0.0 /100WBC Nucleated RBCs # 0 K/uL INR 0.94 Sodium 139 (136-145) mmol/L Potassium 3.9 (3.5-5.1) mmol/L Chloride 104 (98-107) mmol/L Carbon Dioxide 25.0 (21.0-32.0) mmol/L BUN 19 H (7.0-18.0) mg/dL Creatinine 0.7 (0.6-1.0) mg/dL Est Cr Clr Drug Dosing 67.34 mL/min Estimated GFR (MDRD) > 60.0 ml/min Glucose 123 H (74-106) mg/dL Calcium 8.9 (8.5-10.1) mg/dL Total Bilirubin 0.5 (0.2-1.0) mg/dL AST 16 (15-37) IU/L ALT 22 (14-63) IU/L Alkaline Phosphatase 76 (46-116) U/L Troponin I < 0.050 (0.000-0.056) ng/mL B-Natriuretic Peptide (<100) PG/ML Total Protein 6.1 L (6.4-8.2) g/dL Albumin 3.2 L (3.4-5.0) g/dL Globulin 2.9 (2.6-4.0) g/dL Albumin/Globulin Ratio 1.1 (0.9-1.6) Triglycerides (0-200) mg/dL Cholesterol (50-200) mg/dL LDL Cholesterol, Calc (60-180) mg/dL VLDL Cholesterol (5-55) mg/dL HDL Cholesterol (40-60) mg/dL Cholesterol/HDL Ratio (3.3-6.0) Lipase 799 H (73-393) U/L Urine Color Urine Appearance Urine pH (5.0-8.0) Ur Specific [place] (1.001-1.035) Urine Protein (NEGATIVE) mg/dL Urine Glucose (UA) (NEGATIVE) mg/dL Urine Ketones (NEGATIVE) mg/dL Urine Occult Blood (NEGATIVE) Urine Nitrite (NEGATIVE) Urine Bilirubin (NEGATIVE) Urine Urobilinogen (<2.0) EU/dL Ur Leukocyte Esterase (NEGATIVE) Urine RBC (0-2/HPF) Urine WBC (0-5/HPF) Ur Epithelial Cells (NONE-FEW) Urine Bacteria (NEGATIVE) 10/21/18 10/21/18 10/22/18 Range/Units 19:38 21:43 01:25 WBC (4.0-11.0) K/uL RBC (4.30-5.90) M/uL Hgb (12.0-16.0) g/dL Hct (36.0-46.0) % MCV (80.0-98.0) fL MCH (27.0-32.0) pg MCHC (31.0-37.0) g/dL RDW Std Deviation (28.0-62.0) fl RDW Coeff of Anil (11.0-15.0) % Plt Count (150-400) K/uL MPV (7.40-12.00) fL Neut % (Auto) (48.0-80.0) % Lymph % (Auto) (16.0-40.0) % [place] % (Auto) (0.0-15.0) % Eos % (Auto) (0.0-7.0) % Baso % (Auto) (0.0-1.5) % Neut # (Auto) (1.4-5.7) K/uL Lymph # (Auto) (0.6-2.4) K/uL [place] # (Auto) (0.0-0.8) K/uL Eos # (Auto) (0.0-0.7) K/uL Baso # (Auto) (0.0-0.1) K/uL Nucleated RBC % /100WBC Nucleated RBCs # K/uL INR Sodium (136-145) mmol/L Potassium (3.5-5.1) mmol/L Chloride (98-107) mmol/L Carbon Dioxide (21.0-32.0) mmol/L BUN (7.0-18.0) mg/dL Creatinine (0.6-1.0) mg/dL Est Cr Clr Drug Dosing mL/min Estimated GFR (MDRD) ml/min Glucose (74-106) mg/dL Calcium (8.5-10.1) mg/dL Total Bilirubin (0.2-1.0) mg/dL AST (15-37) IU/L ALT (14-63) IU/L Alkaline Phosphatase (46-116) U/L Troponin I < 0.050 (0.000-0.056) ng/mL B-Natriuretic Peptide 86 (<100) PG/ML Total Protein (6.4-8.2) g/dL Albumin (3.4-5.0) g/dL Globulin (2.6-4.0) g/dL Albumin/Globulin Ratio (0.9-1.6) Triglycerides (0-200) mg/dL Cholesterol (50-200) mg/dL LDL Cholesterol, Calc (60-180) mg/dL VLDL Cholesterol (5-55) mg/dL HDL Cholesterol (40-60) mg/dL Cholesterol/HDL Ratio (3.3-6.0) Lipase (73-393) U/L Urine Color YELLOW Urine Appearance SLT CLOUDY Urine pH 5.5 (5.0-8.0) Ur Specific [place] 1.010 (1.001-1.035) Urine Protein NEGATIVE (NEGATIVE) mg/dL Urine Glucose (UA) NEGATIVE (NEGATIVE) mg/dL Urine Ketones NEGATIVE (NEGATIVE) mg/dL Urine Occult Blood NEGATIVE (NEGATIVE) Urine Nitrite NEGATIVE (NEGATIVE) Urine Bilirubin NEGATIVE (NEGATIVE) Urine Urobilinogen 0.2 (<2.0) EU/dL Ur Leukocyte Esterase TRACE H (NEGATIVE) Urine RBC 0-2 (0-2/HPF) Urine WBC 2-4 (0-5/HPF) Ur Epithelial Cells FEW (NONE-FEW) Urine Bacteria FEW (NEGATIVE) 10/22/18 10/22/18 10/22/18 Range/Units 07:30 07:30 07:30 WBC 7.22 (4.0-11.0) K/uL RBC 3.97 L (4.30-5.90) M/uL Hgb 12.3 (12.0-16.0) g/dL Hct 38.4 (36.0-46.0) % MCV 96.7 (80.0-98.0) fL MCH 31.0 (27.0-32.0) pg MCHC 32.0 (31.0-37.0) g/dL RDW Std Deviation 52.1 (28.0-62.0) fl RDW Coeff of Anil 15 (11.0-15.0) % Plt Count 233 (150-400) K/uL MPV 8.70 (7.40-12.00) fL Neut % (Auto) 91.7 H (48.0-80.0) % Lymph % (Auto) 5.5 L (16.0-40.0) % [place] % (Auto) 2.8 (0.0-15.0) % Eos % (Auto) 0.0 (0.0-7.0) % Baso % (Auto) 0.0 (0.0-1.5) % Neut # (Auto) 6.6 H (1.4-5.7) K/uL Lymph # (Auto) 0.4 L (0.6-2.4) K/uL [place] # (Auto) 0.2 (0.0-0.8) K/uL Eos # (Auto) 0.0 (0.0-0.7) K/uL Baso # (Auto) 0.0 (0.0-0.1) K/uL Nucleated RBC % 0.0 /100WBC Nucleated RBCs # 0 K/uL INR Sodium 140 (136-145) mmol/L Potassium 4.1 (3.5-5.1) mmol/L Chloride 108 H (98-107) mmol/L Carbon Dioxide 23.4 (21.0-32.0) mmol/L BUN 17 (7.0-18.0) mg/dL Creatinine 0.6 (0.6-1.0) mg/dL Est Cr Clr Drug Dosing 78.57 mL/min Estimated GFR (MDRD) > 60.0 ml/min Glucose 149 H (74-106) mg/dL Calcium 8.0 L (8.5-10.1) mg/dL Total Bilirubin 0.6 (0.2-1.0) mg/dL AST 13 L (15-37) IU/L ALT 17 (14-63) IU/L Alkaline Phosphatase 50 (46-116) U/L Troponin I < 0.050 (0.000-0.056) ng/mL B-Natriuretic Peptide (<100) PG/ML Total Protein 4.8 L (6.4-8.2) g/dL Albumin 2.4 L (3.4-5.0) g/dL Globulin 2.4 L (2.6-4.0) g/dL Albumin/Globulin Ratio 1.0 (0.9-1.6) Triglycerides (0-200) mg/dL Cholesterol (50-200) mg/dL LDL Cholesterol, Calc (60-180) mg/dL VLDL Cholesterol (5-55) mg/dL HDL Cholesterol (40-60) mg/dL Cholesterol/HDL Ratio (3.3-6.0) Lipase (73-393) U/L Urine Color Urine Appearance Urine pH (5.0-8.0) Ur Specific [place] (1.001-1.035) Urine Protein (NEGATIVE) mg/dL Urine Glucose (UA) (NEGATIVE) mg/dL Urine Ketones (NEGATIVE) mg/dL Urine Occult Blood (NEGATIVE) Urine Nitrite (NEGATIVE) Urine Bilirubin (NEGATIVE) Urine Urobilinogen (<2.0) EU/dL Ur Leukocyte Esterase (NEGATIVE) Urine RBC (0-2/HPF) Urine WBC (0-5/HPF) Ur Epithelial Cells (NONE-FEW) Urine Bacteria (NEGATIVE) 10/22/18 Range/Units 07:30 WBC (4.0-11.0) K/uL RBC (4.30-5.90) M/uL Hgb (12.0-16.0) g/dL Hct (36.0-46.0) % MCV (80.0-98.0) fL MCH (27.0-32.0) pg MCHC (31.0-37.0) g/dL RDW Std Deviation (28.0-62.0) fl RDW Coeff of Anil (11.0-15.0) % Plt Count (150-400) K/uL MPV (7.40-12.00) fL Neut % (Auto) (48.0-80.0) % Lymph % (Auto) (16.0-40.0) % [place] % (Auto) (0.0-15.0) % Eos % (Auto) (0.0-7.0) % Baso % (Auto) (0.0-1.5) % Neut # (Auto) (1.4-5.7) K/uL Lymph # (Auto) (0.6-2.4) K/uL [place] # (Auto) (0.0-0.8) K/uL Eos # (Auto) (0.0-0.7) K/uL Baso # (Auto) (0.0-0.1) K/uL Nucleated RBC % /100WBC Nucleated RBCs # K/uL INR Sodium (136-145) mmol/L Potassium (3.5-5.1) mmol/L Chloride (98-107) mmol/L Carbon Dioxide (21.0-32.0) mmol/L BUN (7.0-18.0) mg/dL Creatinine (0.6-1.0) mg/dL Est Cr Clr Drug Dosing mL/min Estimated GFR (MDRD) ml/min Glucose (74-106) mg/dL Calcium (8.5-10.1) mg/dL Total Bilirubin (0.2-1.0) mg/dL AST (15-37) IU/L ALT (14-63) IU/L Alkaline Phosphatase (46-116) U/L Troponin I (0.000-0.056) ng/mL B-Natriuretic Peptide (<100) PG/ML Total Protein (6.4-8.2) g/dL Albumin (3.4-5.0) g/dL Globulin (2.6-4.0) g/dL Albumin/Globulin Ratio (0.9-1.6) Triglycerides 26 (0-200) mg/dL Cholesterol 195 (50-200) mg/dL LDL Cholesterol, Calc 112 (60-180) mg/dL VLDL Cholesterol 5 (5-55) mg/dL HDL Cholesterol 78 H (40-60) mg/dL Cholesterol/HDL Ratio 2.5 L (3.3-6.0) Lipase (73-393) U/L Urine Color Urine Appearance Urine pH (5.0-8.0) Ur Specific [place] (1.001-1.035) Urine Protein (NEGATIVE) mg/dL Urine Glucose (UA) (NEGATIVE) mg/dL Urine Ketones (NEGATIVE) mg/dL Urine Occult Blood (NEGATIVE) Urine Nitrite (NEGATIVE) Urine Bilirubin (NEGATIVE) Urine Urobilinogen (<2.0) EU/dL Ur Leukocyte Esterase (NEGATIVE) Urine RBC (0-2/HPF) Urine WBC (0-5/HPF) Ur Epithelial Cells (NONE-FEW) Urine Bacteria (NEGATIVE) Med Orders - Current: Current Medications Sodium Chloride (Normal Saline) 1,000 mls @ 125 mls/hr IV ASDIRECTED [facility] Last Admin: 10/22/18 08:58 Dose: 125 mls/hr Omeprazole (Omeprazole) 20 mg PO Q48H [facility] Aspirin [Aspirin] 81 (Mg) 1 each PO DAILY [facility] Last Admin: 10/22/18 11:43 Dose: 1 each Levothyroxine Sodium [Levothyroxine Sodium] 50 Mcg 1 each PO ACBREAKFAST [facility] Last Admin: 10/22/18 11:43 Dose: 1 each Metoprolol Succinate [[place] Sprinkle ] 25 Mg 1 each PO DAILY [facility] Last Admin: 10/22/18 11:43 Dose: 1 each Propafenone HCl (Rythmol) 300 mg PO QPM [facility] Sodium Chloride (Saline Flush) 10 ml FLUSH ASDIRECTED PRN PRN Reason: Keep Vein Open Last Admin: 10/21/18 20:08 Dose: 10 ml Sodium Chloride (Saline Flush) 2.5 ml FLUSH ASDIRECTED PRN PRN Reason: Keep Vein Open Last Admin: 10/21/18 20:08 Dose: 2.5 ml Discontinued Medications Aspirin (Aspirin) 324 mg PO ONETIME ONE Stop: 10/21/18 19:47 Last Admin: 10/21/18 20:00 Dose: 324 mg Diphenhydramine HCl (Benadryl) 50 mg IVPUSH ONETIME ONE Stop: 10/21/18 19:47 Last Admin: 10/21/18 20:05 Dose: 50 mg Sodium Chloride (Normal Saline) 1,000 mls @ 999 mls/hr IV .Bolus ONE Stop: 10/21/18 21:08 Last Admin: 10/21/18 20:05 Dose: 999 mls/hr Sodium Chloride (Normal Saline) 1,000 mls @ 999 mls/hr IV .Bolus ONE Stop: 10/22/18 00:49 Last Admin: 10/21/18 23:56 Dose: 999 mls/hr Iopamidol (Isovue-370 (76%)) 75 ml IVPUSH ONETIME ONE Stop: 10/21/18 21:18 Last Admin: 10/21/18 21:18 Dose: 75 ml Methylprednisolone Sodium Succinate (Solu-Medrol) 125 mg IVPUSH ONETIME ONE Stop: 10/21/18 19:52 Last Admin: 10/21/18 20:08 Dose: 125 mg Ondansetron HCl (Zofran) 4 mg IVPUSH ONETIME ONE Stop: 10/21/18 19:47 Last Admin: 10/21/18 20:01 Dose: 4 mg <Sawyer Xiong - Last Filed: 10/22/18 18:52> - Patient Data Vitals - Most Recent: Last Vital Signs Temp 36.2 C 10/22/18 12:00 Pulse 73 10/22/18 12:00 Resp 18 10/22/18 12:00 BP 122/53 L 10/22/18 12:00 Pulse Ox 98 10/22/18 12:00 I&O - Last 24 hours: Intake & Output 10/22/18 10/22/18 10/22/18 06:59 14:59 22:59 Intake Total 0 1467 240 Output Total 550 700 200 Balance -550 767 40 Lab Results - Last 24 hrs: Laboratory Results - last 24 hr 10/21/18 10/21/18 10/21/18 Range/Units 19:38 19:38 19:38 WBC 8.90 (4.0-11.0) K/uL RBC 4.72 (4.30-5.90) M/uL Hgb 14.7 (12.0-16.0) g/dL Hct 45.5 (36.0-46.0) % MCV 96.4 (80.0-98.0) fL MCH 31.1 (27.0-32.0) pg MCHC 32.3 (31.0-37.0) g/dL RDW Std Deviation 51.7 (28.0-62.0) fl RDW Coeff of Anil 15 (11.0-15.0) % Plt Count 279 (150-400) K/uL MPV 9.00 (7.40-12.00) fL Neut % (Auto) 80.7 H (48.0-80.0) % Lymph % (Auto) 15.1 L (16.0-40.0) % [place] % (Auto) 2.4 (0.0-15.0) % Eos % (Auto) 1.6 (0.0-7.0) % Baso % (Auto) 0.2 (0.0-1.5) % Neut # (Auto) 7.2 H (1.4-5.7) K/uL Lymph # (Auto) 1.3 (0.6-2.4) K/uL [place] # (Auto) 0.2 (0.0-0.8) K/uL Eos # (Auto) 0.1 (0.0-0.7) K/uL Baso # (Auto) 0.0 (0.0-0.1) K/uL Nucleated RBC % 0.0 /100WBC Nucleated RBCs # 0 K/uL INR 0.94 Sodium 139 (136-145) mmol/L Potassium 3.9 (3.5-5.1) mmol/L Chloride 104 (98-107) mmol/L Carbon Dioxide 25.0 (21.0-32.0) mmol/L BUN 19 H (7.0-18.0) mg/dL Creatinine 0.7 (0.6-1.0) mg/dL Est Cr Clr Drug Dosing 67.34 mL/min Estimated GFR (MDRD) > 60.0 ml/min Glucose 123 H (74-106) mg/dL Calcium 8.9 (8.5-10.1) mg/dL Total Bilirubin 0.5 (0.2-1.0) mg/dL AST 16 (15-37) IU/L ALT 22 (14-63) IU/L Alkaline Phosphatase 76 (46-116) U/L Troponin I < 0.050 (0.000-0.056) ng/mL B-Natriuretic Peptide (<100) PG/ML Total Protein 6.1 L (6.4-8.2) g/dL Albumin 3.2 L (3.4-5.0) g/dL Globulin 2.9 (2.6-4.0) g/dL Albumin/Globulin Ratio 1.1 (0.9-1.6) Triglycerides (0-200) mg/dL Cholesterol (50-200) mg/dL LDL Cholesterol, Calc (60-180) mg/dL VLDL Cholesterol (5-55) mg/dL HDL Cholesterol (40-60) mg/dL Cholesterol/HDL Ratio (3.3-6.0) Lipase 799 H (73-393) U/L Urine Color Urine Appearance Urine pH (5.0-8.0) Ur Specific [place] (1.001-1.035) Urine Protein (NEGATIVE) mg/dL Urine Glucose (UA) (NEGATIVE) mg/dL Urine Ketones (NEGATIVE) mg/dL Urine Occult Blood (NEGATIVE) Urine Nitrite (NEGATIVE) Urine Bilirubin (NEGATIVE) Urine Urobilinogen (<2.0) EU/dL Ur Leukocyte Esterase (NEGATIVE) Urine RBC (0-2/HPF) Urine WBC (0-5/HPF) Ur Epithelial Cells (NONE-FEW) Urine Bacteria (NEGATIVE) 08/10/21/18 10/22/18 Range/Units 19:38 21:43 01:25 WBC (4.0-11.0) K/uL RBC (4.30-5.90) M/uL Hgb (12.0-16.0) g/dL Hct (36.0-46.0) % MCV (80.0-98.0) fL MCH (27.0-32.0) pg MCHC (31.0-37.0) g/dL RDW Std Deviation (28.0-62.0) fl RDW Coeff of Anil (11.0-15.0) % Plt Count (150-400) K/uL MPV (7.40-12.00) fL Neut % (Auto) (48.0-80.0) % Lymph % (Auto) (16.0-40.0) % [place] % (Auto) (0.0-15.0) % Eos % (Auto) (0.0-7.0) % Baso % (Auto) (0.0-1.5) % Neut # (Auto) (1.4-5.7) K/uL Lymph # (Auto) (0.6-2.4) K/uL [place] # (Auto) (0.0-0.8) K/uL Eos # (Auto) (0.0-0.7) K/uL Baso # (Auto) (0.0-0.1) K/uL Nucleated RBC % /100WBC Nucleated RBCs # K/uL INR Sodium (136-145) mmol/L Potassium (3.5-5.1) mmol/L Chloride (98-107) mmol/L Carbon Dioxide (21.0-32.0) mmol/L BUN (7.0-18.0) mg/dL Creatinine (0.6-1.0) mg/dL Est Cr Clr Drug Dosing mL/min Estimated GFR (MDRD) ml/min Glucose (74-106) mg/dL Calcium (8.5-10.1) mg/dL Total Bilirubin (0.2-1.0) mg/dL AST (15-37) IU/L ALT (14-63) IU/L Alkaline Phosphatase (46-116) U/L Troponin I < 0.050 (0.000-0.056) ng/mL B-Natriuretic Peptide 86 (<100) PG/ML Total Protein (6.4-8.2) g/dL Albumin (3.4-5.0) g/dL Globulin (2.6-4.0) g/dL Albumin/Globulin Ratio (0.9-1.6) Triglycerides (0-200) mg/dL Cholesterol (50-200) mg/dL LDL Cholesterol, Calc (60-180) mg/dL VLDL Cholesterol (5-55) mg/dL HDL Cholesterol (40-60) mg/dL Cholesterol/HDL Ratio (3.3-6.0) Lipase (73-393) U/L Urine Color YELLOW Urine Appearance SLT CLOUDY Urine pH 5.5 (5.0-8.0) Ur Specific [place] 1.010 (1.001-1.035) Urine Protein NEGATIVE (NEGATIVE) mg/dL Urine Glucose (UA) NEGATIVE (NEGATIVE) mg/dL Urine Ketones NEGATIVE (NEGATIVE) mg/dL Urine Occult Blood NEGATIVE (NEGATIVE) Urine Nitrite NEGATIVE (NEGATIVE) Urine Bilirubin NEGATIVE (NEGATIVE) Urine Urobilinogen 0.2 (<2.0) EU/dL Ur Leukocyte Esterase TRACE H (NEGATIVE) Urine RBC 0-2 (0-2/HPF) Urine WBC 2-4 (0-5/HPF) Ur Epithelial Cells FEW (NONE-FEW) Urine Bacteria FEW (NEGATIVE) 10/22/18 10/22/18 10/22/18 Range/Units 07:30 07:30 07:30 WBC 7.22 (4.0-11.0) K/uL RBC 3.97 L (4.30-5.90) M/uL Hgb 12.3 (12.0-16.0) g/dL Hct 38.4 (36.0-46.0) % MCV 96.7 (80.0-98.0) fL MCH 31.0 (27.0-32.0) pg MCHC 32.0 (31.0-37.0) g/dL RDW Std Deviation 52.1 (28.0-62.0) fl RDW Coeff of Anil 15 (11.0-15.0) % Plt Count 233 (150-400) K/uL MPV 8.70 (7.40-12.00) fL Neut % (Auto) 91.7 H (48.0-80.0) % Lymph % (Auto) 5.5 L (16.0-40.0) % [place] % (Auto) 2.8 (0.0-15.0) % Eos % (Auto) 0.0 (0.0-7.0) % Baso % (Auto) 0.0 (0.0-1.5) % Neut # (Auto) 6.6 H (1.4-5.7) K/uL Lymph # (Auto) 0.4 L (0.6-2.4) K/uL [place] # (Auto) 0.2 (0.0-0.8) K/uL Eos # (Auto) 0.0 (0.0-0.7) K/uL Baso # (Auto) 0.0 (0.0-0.1) K/uL Nucleated RBC % 0.0 /100WBC Nucleated RBCs # 0 K/uL INR Sodium 140 (136-145) mmol/L Potassium 4.1 (3.5-5.1) mmol/L Chloride 108 H (98-107) mmol/L Carbon Dioxide 23.4 (21.0-32.0) mmol/L BUN 17 (7.0-18.0) mg/dL Creatinine 0.6 (0.6-1.0) mg/dL Est Cr Clr Drug Dosing 78.57 mL/min Estimated GFR (MDRD) > 60.0 ml/min Glucose 149 H (74-106) mg/dL Calcium 8.0 L (8.5-10.1) mg/dL Total Bilirubin 0.6 (0.2-1.0) mg/dL AST 13 L (15-37) IU/L ALT 17 (14-63) IU/L Alkaline Phosphatase 50 (46-116) U/L Troponin I < 0.050 (0.000-0.056) ng/mL B-Natriuretic Peptide (<100) PG/ML Total Protein 4.8 L (6.4-8.2) g/dL Albumin 2.4 L (3.4-5.0) g/dL Globulin 2.4 L (2.6-4.0) g/dL Albumin/Globulin Ratio 1.0 (0.9-1.6) Triglycerides (0-200) mg/dL Cholesterol (50-200) mg/dL LDL Cholesterol, Calc (60-180) mg/dL VLDL Cholesterol (5-55) mg/dL HDL Cholesterol (40-60) mg/dL Cholesterol/HDL Ratio (3.3-6.0) Lipase (73-393) U/L Urine Color Urine Appearance Urine pH (5.0-8.0) Ur Specific [place] (1.001-1.035) Urine Protein (NEGATIVE) mg/dL Urine Glucose (UA) (NEGATIVE) mg/dL Urine Ketones (NEGATIVE) mg/dL Urine Occult Blood (NEGATIVE) Urine Nitrite (NEGATIVE) Urine Bilirubin (NEGATIVE) Urine Urobilinogen (<2.0) EU/dL Ur Leukocyte Esterase (NEGATIVE) Urine RBC (0-2/HPF) Urine WBC (0-5/HPF) Ur Epithelial Cells (NONE-FEW) Urine Bacteria (NEGATIVE) 10/22/18 Range/Units 07:30 WBC (4.0-11.0) K/uL RBC (4.30-5.90) M/uL Hgb (12.0-16.0) g/dL Hct (36.0-46.0) % MCV (80.0-98.0) fL MCH (27.0-32.0) pg MCHC (31.0-37.0) g/dL RDW Std Deviation (28.0-62.0) fl RDW Coeff of Anil (11.0-15.0) % Plt Count (150-400) K/uL MPV (7.40-12.00) fL Neut % (Auto) (48.0-80.0) % Lymph % (Auto) (16.0-40.0) % [place] % (Auto) (0.0-15.0) % Eos % (Auto) (0.0-7.0) % Baso % (Auto) (0.0-1.5) % Neut # (Auto) (1.4-5.7) K/uL Lymph # (Auto) (0.6-2.4) K/uL [place] # (Auto) (0.0-0.8) K/uL Eos # (Auto) (0.0-0.7) K/uL Baso # (Auto) (0.0-0.1) K/uL Nucleated RBC % /100WBC Nucleated RBCs # K/uL INR Sodium (136-145) mmol/L Potassium (3.5-5.1) mmol/L Chloride (98-107) mmol/L Carbon Dioxide (21.0-32.0) mmol/L BUN (7.0-18.0) mg/dL Creatinine (0.6-1.0) mg/dL Est Cr Clr Drug Dosing mL/min Estimated GFR (MDRD) ml/min Glucose (74-106) mg/dL Calcium (8.5-10.1) mg/dL Total Bilirubin (0.2-1.0) mg/dL AST (15-37) IU/L ALT (14-63) IU/L Alkaline Phosphatase (46-116) U/L Troponin I (0.000-0.056) ng/mL B-Natriuretic Peptide (<100) PG/ML Total Protein (6.4-8.2) g/dL Albumin (3.4-5.0) g/dL Globulin (2.6-4.0) g/dL Albumin/Globulin Ratio (0.9-1.6) Triglycerides 26 (0-200) mg/dL Cholesterol 195 (50-200) mg/dL LDL Cholesterol, Calc 112 (60-180) mg/dL VLDL Cholesterol 5 (5-55) mg/dL HDL Cholesterol 78 H (40-60) mg/dL Cholesterol/HDL Ratio 2.5 L (3.3-6.0) Lipase (73-393) U/L Urine Color Urine Appearance Urine pH (5.0-8.0) Ur Specific [place] (1.001-1.035) Urine Protein (NEGATIVE) mg/dL Urine Glucose (UA) (NEGATIVE) mg/dL Urine Ketones (NEGATIVE) mg/dL Urine Occult Blood (NEGATIVE) Urine Nitrite (NEGATIVE) Urine Bilirubin (NEGATIVE) Urine Urobilinogen (<2.0) EU/dL Ur Leukocyte Esterase (NEGATIVE) Urine RBC (0-2/HPF) Urine WBC (0-5/HPF) Ur Epithelial Cells (NONE-FEW) Urine Bacteria (NEGATIVE) Med Orders - Current: Current Medications Discontinued Medications Aspirin (Aspirin) 324 mg PO ONETIME ONE Stop: 10/21/18 19:47 Last Admin: 10/21/18 20:00 Dose: 324 mg Diphenhydramine HCl (Benadryl) 50 mg IVPUSH ONETIME ONE Stop: 10/21/18 19:47 Last Admin: 10/21/18 20:05 Dose: 50 mg Sodium Chloride (Normal Saline) 1,000 mls @ 999 mls/hr IV .Bolus ONE Stop: 10/21/18 21:08 Last Admin: 10/21/18 20:05 Dose: 999 mls/hr Sodium Chloride (Normal Saline) 1,000 mls @ 999 mls/hr IV .Bolus ONE Stop: 10/22/18 00:49 Last Admin: 10/21/18 23:56 Dose: 999 mls/hr Sodium Chloride (Normal Saline) 1,000 mls @ 125 mls/hr IV ASDIRECTED ROZ Last Admin: 10/22/18 08:58 Dose: 125 mls/hr Iopamidol (Isovue-370 (76%)) 75 ml IVPUSH ONETIME ONE Stop: 10/21/18 21:18 Last Admin: 10/21/18 21:18 Dose: 75 ml Methylprednisolone Sodium Succinate (Solu-Medrol) 125 mg IVPUSH ONETIME ONE Stop: 10/21/18 19:52 Last Admin: 10/21/18 20:08 Dose: 125 mg Omeprazole (Omeprazole) 20 mg PO Q48H ROZ Ondansetron HCl (Zofran) 4 mg IVPUSH ONETIME ONE Stop: 10/21/18 19:47 Last Admin: 10/21/18 20:01 Dose: 4 mg Aspirin [Aspirin] 81 (Mg) 1 each PO DAILY [facility] Last Admin: 10/22/18 11:43 Dose: 1 each Levothyroxine Sodium [Levothyroxine Sodium] 50 Mcg 1 each PO ACBREAKFAST [facility] Last Admin: 10/22/18 11:43 Dose: 1 each Metoprolol Succinate [[place] Sprinkle ] 25 Mg 1 each PO DAILY [facility] Last Admin: 10/22/18 11:43 Dose: 1 each Propafenone HCl (Rythmol) 300 mg PO QPM [facility] Sodium Chloride (Saline Flush) 10 ml FLUSH ASDIRECTED PRN PRN Reason: Keep Vein Open Last Admin: 10/21/18 20:08 Dose: 10 ml Sodium Chloride (Saline Flush) 2.5 ml FLUSH ASDIRECTED PRN PRN Reason: Keep Vein Open Last Admin: 10/21/18 20:08 Dose: 2.5 ml - Free Text/Narrative Note: I have evaluated the patient. I have discussed findings and treatment plan with resident. I agree with the assessment and plan outlined in the following note.
[2018-10-23] MEDS ORDERED: Omeprazole 20 MG Cap.CR PO SCH (07:30)
== END 2018-10-22 14:45 | disposition home or self-care (01) ==
LOC: MW.ED 19:33 → MW.MS 23:31
PROVIDERS: ADMIT Internal Medicine; ATTEND Internal Medicine
DX: R07.9 Chest pain, unspecified (principal); R74.8 Abnormal levels of other serum enzymes; I10 Essential (primary) hypertension; I48.91 Unspecified atrial fibrillation; E03.9 Hypothyroidism, unspecified; K21.9 Gastro-esophageal reflux disease without esophagitis; J45.909 Unspecified asthma, uncomplicated; G47.30 Sleep apnea, unspecified; Z88.1 Allergy status to other antibiotic agents; Z88.2 Allergy status to sulfonamides; Z88.5 Allergy status to narcotic agent; Z88.6 Allergy status to analgesic agent; Z66 Do not resuscitate; Z99.89 Dependence on other enabling machines and devices; Z79.899 Other long term (current) drug therapy
CPT/HCPCS: 36415; 71260; 74176; 76705; 80053; 80061; 81001; 83690; 83880; 84484; 85025; 85610; 87086; 93005; 96361; 96374; 96375; 99285; A9270; J1200; J2405; J2930; J7040; Q9967; G0378

== ENCOUNTER 2018-12-01 06:35 | Day surgery (SDC) | payer MEDICARE, OTHER ==
[2018-12-01] MEDS ORDERED: Propofol 200 MG/20 ML SDV ONE (07:02)
--- NOTE | 2018-12-01 07:52 | PCM.PREANE ---
Preanesthetic Assessment - Anesthesia/Transfusion/Family Hx Anesthesia History: Prior Anesthesia Without Reaction Other Type of Anesthesia Reaction Comment: Denies any known problem in the past , no known family history Transfusion History: Prior Transfusion Without Reaction - Review of Systems General: No Symptoms Pulmonary: No Symptoms Cardiovascular: No Symptoms Gastrointestinal: No Symptoms Neurological: No Symptoms Other: Reports: None - Physical Assessment NPO Status Date: 12/01/18 NPO Status Time: 06:00 Vital Signs: Last Vital Signs Temp 36.3 C 12/01/18 06:52 Pulse 85 12/01/18 06:52 Resp 16 12/01/18 06:52 BP 144/82 H 12/01/18 06:52 Pulse Ox 96 12/01/18 06:52 Height: 1.63 m Weight: 99.337 kg ASA Class: 3 Mental Status: Alert & Oriented x3 (SMALL MOUTH) Airway Class: Mallampati = 3 Dentition: Reports: Normal Dentition Thyro-Mental Finger Breadths: 3 Mouth Opening Finger Breadths: 3 ROM/Head Extension: Full Lungs: Clear to Auscultation Cardiovascular: Regular Rate, Regular Rhythm - Allergies Allergies/Adverse Reactions: Allergies Allergy/AdvReac Type Severity Reaction Status Date / Time cefaclor [From Ceclor] Allergy Unknown Hives Verified 11/29/18 09:36 oxaprozin [From Daypro] Allergy Unknown Hives Verified 11/29/18 09:36 sulfamethoxazole Allergy Unknown Redness Verified 11/29/18 09:36 [From Bactrim] trimethoprim [From Bactrim] Allergy Unknown Hives Verified 11/29/18 09:36 hydromorphone HCl Allergy Disorientat Verified 11/29/18 09:36 [From Dilaudid] ion CT contrast dye AdvReac Hives Uncoded 11/29/18 09:36 - Acknowledgements Anesthesia Type Planned: MAC Pt an Appropriate Candidate for the Planned Anesthesia: Yes Alternatives and Risks of Anesthesia Discussed w Pt/Guardian: Yes Pt/Guardian Understands and Agrees with Anesthesia Plan: Yes PreAnesthesia Questionnaire HEENT History: Reports: Other (See Below) (right sided facial hemihypertrophy) Other HEENT History: wears glasses Cardiovascular History: Reports: Afib Other Cardiovascular History: takes Metoprolol to help control heart rate, has occasional A-Fib but converts on her own- last episode was in July. ALSO has episodes of atrial fibrillation when she overexerts herself. 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: Reports: None Musculoskeletal History: Reports: Back Pain, Chronic (denies pain at this time.) , Other (See Below) Other Musculoskeletal History: 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 Neurological History: Reports: None Psychiatric History: Reports: None Endocrine/Metabolic History: Reports: Hypothyroidism, Obesity/BMI 30+ Hematologic History: Reports: Blood Transfusion(s) Immunologic History: Reports: None Oncologic (Cancer) History: Reports: None Dermatologic History: Reports: None - Infectious Disease History Infectious Disease History: Reports: None - Past Surgical History Head Surgeries/Procedures: Reports: None HEENT Surgical History: Reports: Naso-Sinus Surgery, Tonsillectomy GI Surgical History: Reports: Colonoscopy Female Surgical History: Reports: Cystoscopy Musculoskeletal Surgical History: Reports: Knee Replacement, Other (See Below) Other Musculoskeletal Surgeries/Procedures:: bilateral TKA, hx of femur stapling with brown removed, hx of reduction of thigh and buttocks on right side - SUBSTANCE USE Smoking Status *Q: Never Smoker Days Per Week of Alcohol Use: 2 Recreational Drug Use History: No - HOME MEDS Home Medications: Home Meds Levothyroxine Sodium 50 mcg PO QAM 06/22/13 [History] Omeprazole [Prilosec] 20 mg PO ASDIRECTED 11/06/13 [History] Aspirin 81 mg PO DAILY 10/21/18 [History] Metoprolol Succinate [Kapspargo Sprinkle] 25 mg PO QAM 10/21/18 [History] Propafenone HCl [Propafenone] 150 mg PO DAILY 10/21/18 [History] Cetirizine HCl [Zyrtec] 10 mg PO DAILY 10/22/18 [History] Cholecalciferol (Vitamin D3) [Vitamin D3] 1,000 unit PO DAILY 10/22/18 [History] Biotin 1 mg PO DAILY 11/29/18 [History] Melatonin 1 mg PO BEDTIME 11/29/18 [History] - CURRENT (IN HOUSE) MEDS Current Meds: Current Medications Lactated Ringer's (Ringers, Lactated) 1,000 mls @ 125 mls/hr IV ASDIRECTED ROZ Sodium Chloride (Saline Flush) 10 ml FLUSH ASDIRECTED PRN PRN Reason: Keep Vein Open Sodium Chloride (Saline Flush) 2.5 ml FLUSH ASDIRECTED PRN PRN Reason: Keep Vein Open Sodium Chloride (Saline Flush) 10 ml FLUSH ASDIRECTED PRN PRN Reason: Keep Vein Open Sodium Chloride (Saline Flush) 2.5 ml FLUSH ASDIRECTED PRN PRN Reason: Keep Vein Open Sodium Chloride (Normal Saline) 10 ml IV ASDIRECTED PRN PRN Reason: IV Use Discontinued Medications Lidocaine HCl (Xylocaine-Mpf 1%) Confirm Administered Dose 5 ml .ROUTE .STK-MED ONE Stop: 12/01/18 07:03 Propofol (Diprivan 20 Ml) Confirm Administered Dose 400 mg .ROUTE .STK-MED ONE Stop: 12/01/18 07:03
[2018-12-01] MEDS ORDERED: Ondansetron 4 MG/2 ML SDV IVPUSH PRN (07:53)
[2018-12-01] MEDS ORDERED: fentaNYL 100 MCG/2 ML SDV IVPUSH PRN (07:53)
[2018-12-01] MEDS ORDERED: Ketamine 500 mg/10 ML MDV ONE (08:13)
--- NOTE | 2018-12-01 08:30 | PCM.OPNOTE ---
- General Post-Op/Procedure Note Date of Surgery/Procedure: 12/01/18 Operative Procedure(s): Screening colonoscopy Findings: Diverticulosis, sigmoid colon polyps x 2, transverse colon polyp, grade IV hemorrhoids Pre Op Diagnosis: Screening colonoscopy Post-Op Diagnosis: Diverticulosis, sigmoid colon polyps x 2, transverse colon polyp, grade IV hemorrhoids [place] [facility] [place]geon: Harriet Vivar Condition: Good
[2018-12-01] MEDS ORDERED: Lactated Ringers 1,000 ML IV SCH (08:45)
[2018-12-01] MEDS ORDERED: Sodium Chloride 0.9% 10 ML Syringe FLUSH PRN ×2 (08:45)
[2018-12-01] MEDS ORDERED: Sodium Chloride 0.9% 10 ML SDV IV PRN (08:45)
[2018-12-01] MEDS ORDERED: Sodium Chloride 0.9% 2.5 ML Syringe FLUSH PRN ×2 (08:45)
--- NOTE | 2018-12-01 08:57 | PCM48HPAN ---
Post Anesthesia Note - EVALUATION WITHIN 48HRS OF ANESTHETIC Vital Signs in Normal Range: Yes Patient Participated in Evaluation: Yes Respiratory Function Stable: Yes Airway Patent: Yes Cardiovascular Function Stable: Yes Hydration Status Stable: Yes Pain Control Satisfactory: Yes Nausea and Vomiting Control Satisfactory: Yes Mental Status Recovered: Yes Vital Signs: Last Vital Signs Temp 97.3 F 12/01/18 06:52 Pulse 59 L 12/01/18 08:38 Resp 11 L 12/01/18 08:38 BP 136/59 L 12/01/18 08:38 Pulse Ox 99 12/01/18 08:38
--- NOTE | 2018-12-01 08:58 | PCM.POSTAN ---
POST ANESTHESIA ASSESSMENT - MENTAL STATUS Mental Status: Alert, Oriented - VITAL SIGNS Vital Signs: Last Vital Signs Temp 36.3 C 12/01/18 06:52 Pulse 59 L 12/01/18 08:38 Resp 11 L 12/01/18 08:38 BP 136/59 L 12/01/18 08:38 Pulse Ox 99 12/01/18 08:38 - RESPIRATORY Respiratory Status: Respiratory Rate WNL, Airway Patent, O2 Saturation Stable - CARDIOVASCULAR CV Status: Pulse Rate WNL, Blood Pressure Stable - GASTROINTESTINAL GI Status: No Symptoms - POST OP HYDRATION Hydration Status: Adequate & Stable - OBSERVATIONS Free Text/Narrative:: The patient tolerated the procedure well. There were no apparent anesthetic complications at this time.
[2018-12-01 09:16] VITALS: BP 146/55; PULSE 63
--- NOTE | 2018-12-01 10:50 | OR ---
SURGEON: HARRIET VIVAR MD DATE OF PROCEDURE: 12/01/2018 PREOPERATIVE DIAGNOSIS: Family history of colon cancer. POSTOPERATIVE DIAGNOSES: 1. Diverticulosis. 2. Transverse colon polyp x1. 3. Sigmoid colon polyps x2. 4. Grade 4 hemorrhoids. PROCEDURE PERFORMED: Screening colonoscopy with polypectomy. PRIMARY SURGEON: Harriet Vivar MD. ANESTHESIA: MAC. INSTRUMENT USED: Olympus colonoscope. EXTENT OF EXAM: To the cecum. PREPARATION: Good. LIMITATIONS: None. INDICATION FOR EXAMINATION: The patient is a 68-year-old female who presents for 5-year followup colonoscopy. During her last colonoscopy, she was noted to have diverticulosis and hyperplastic polyps. The patient's mother was diagnosed with colon cancer recently. She is due for a screening colonoscopy. I explained the procedure, expected perioperative course, and risks including bleeding, infection, or damage to surrounding structures including perforation. The patient verbalized understanding and wishes to proceed. PROCEDURE IN DETAIL: The patient was brought into the endoscopy suite and placed in the left lateral decubitus position. A time-out was completed verifying the patient's name, age, date of , allergies, and procedure to be performed. Monitored anesthesia care was induced and continuous oxygen was provided via nasal cannula throughout the procedure. After adequate sedation was achieved, a digital rectal exam was performed. This exam revealed grade 4 hemorrhoids. A well-lubricated colonoscope was inserted in the rectum and advanced under direct visualization to the level of the cecum. The cecum was identified by both visual and anatomic landmarks. A photograph was taken of the cecal cap; however. I was unable to retroflex the scope within the cecum due to looping of the scope more proximally. The scope was then fully withdrawn while examining the color, texture, anatomy, and integrity of the mucosa from the cecum to the anal canal. The patient was noted to have diverticulosis throughout the sigmoid colon. In the mid transverse colon, a small sessile polyp was noted. This was removed in piecemeal fashion using a cold biopsy forceps. The patient was found to have a sigmoid colon polyp in the proximal sigmoid colon as well as in the distal sigmoid colon. These were both removed in piecemeal fashion using a cold biopsy forceps. The scope was then brought into the rectum and retroflexed to allow visualization of the anal canal opening. Again, I noted enlarged hemorrhoidal tissue consistent with my digital rectal exam. A photograph was taken. The scope was then straightened out and fully withdrawn. The cecum to anus time was 14 minutes. The patient tolerated the procedure well, was transferred to the PACU in stable condition. ENDOSCOPIC DIAGNOSES: 1. Diverticulosis. 2. Transverse colon polyps x1. 3. Sigmoid colon polyps x2. 4. Grade 4 hemorrhoids. RECOMMENDATIONS: Followup in clinic in 2 weeks. MARSHAL MILLAN /[id number]
== END 2018-12-01 09:17 | disposition home or self-care (01) ==
LOC: MW.SDS 06:35
PROVIDERS: ATTEND Surgery
DX: Z12.11 Encounter for screening for malignant neoplasm of colon (principal); D12.5 Benign neoplasm of sigmoid colon; K63.5 Polyp of colon; K57.30 Diverticulosis of large intestine without perforation or abscess without bleeding; K64.3 Fourth degree hemorrhoids; K21.9 Gastro-esophageal reflux disease without esophagitis; E03.9 Hypothyroidism, unspecified; J45.909 Unspecified asthma, uncomplicated; Z88.1 Allergy status to other antibiotic agents; Z88.6 Allergy status to analgesic agent; Z88.2 Allergy status to sulfonamides; Z88.5 Allergy status to narcotic agent; Z91.041 Radiographic dye allergy status; Z86.010 Personal history of colon polyps; Z80.0 Family history of malignant neoplasm of digestive organs; Z79.899 Other long term (current) drug therapy
CPT/HCPCS: J2001; J2704

== ENCOUNTER 2019-03-29 09:04 | Observation (INO) | payer MEDICARE, OTHER ==
[2019-03-29] MEDS ORDERED: Morphine 2 MG/ML Syringe IVPUSH ONE (09:13)
[2019-03-29] MEDS ORDERED: Sodium Chloride 0.9% 2.5 ML Syringe FLUSH PRN (09:13)
[2019-03-29] MEDS ORDERED: Ondansetron 4 MG/2 ML SDV IVPUSH ONE (09:13)
[2019-03-29] MEDS ORDERED: Sodium Chloride 0.9% 10 ML Syringe FLUSH PRN (09:13)
--- NOTE | 2019-03-29 09:17 | EDM.PDOC ---
ED HPI GENERAL MEDICAL PROBLEM - General Stated Complaint: STRESS TEST TO ER Time Seen by Provider: 03/29/19 09:07 - History of Present Illness INITIAL COMMENTS - FREE TEXT/NARRATIVE: HISTORY AND PHYSICAL: History of present illness: Patient is a 69-year-old white female with history of chronic back pain who presents the emergency department after having directed here by cardiology who just completed the first part of a Rita stress test patient developed increased back pain diaphoresis and right shoulder pain she equivocates regarding shortness of breath there is been no chest discomfort or tightness she has no history of RI or stroke there is been no numbness weakness or incontinence/ retention of bowel or bladder. Has history of chronic lymphedema and uses support stockings Review of systems: As per history of present illness and below otherwise all systems reviewed and negative. Past medical history: As per history of present illness and as reviewed below otherwise noncontributory. Surgical history: As per history of present illness and as reviewed below otherwise noncontributory. Social history: No reported history of drug or alcohol abuse. Family history: As per history of present illness and as reviewed below otherwise noncontributory. Physical exam: HEENT: Atraumatic, normocephalic, pupils reactive, negative for conjunctival pallor or scleral icterus, mucous membranes moist, throat clear, neck supple, nontender, trachea midline. Lungs: Clear to auscultation, breath sounds equal bilaterally, chest nontender. Heart: S1S2, regular, negative for clicks, rubs, or JVD. Abdomen: Soft, nondistended, nontender. Negative for masses or hepatosplenomegaly. Negative for costovertebral tenderness. Pelvis: Stable nontender. Genitourinary: Deferred. Rectal: Deferred. Extremities: Atraumatic, negative for cords or calf pain. Neurovascular unremarkable. Lymphedema noted right greater than left chronic per patient's history Neuro: Awake, alert, oriented. Cranial nerves II through XII unremarkable. Cerebellum unremarkable. Motor and sensory unremarkable throughout. Exam nonfocal. Back: Patient has no midline vertebral body tenderness motor and sensory inferiorly are unremarkable Diagnostics: CBC CMP troponin PT/INR d-dimer chest x-ray EKG Therapeutics: IV O2 monitor full dose aspirin morphine sulfate 2 mg IV Zofran 4 mg IV Impression: #1 medical screening exam #2 right shoulder pain with diaphoresis #3 chronic back pain Definitive disposition and diagnosis as appropriate pending reevaluation and review of above. - Related Data Allergies Allergy/AdvReac Type Severity Reaction Status Date / Time cefaclor [From Ceclor] Allergy Unknown Hives Verified 03/29/19 09:16 oxaprozin [From Daypro] Allergy Unknown Hives Verified 03/29/19 09:16 sulfamethoxazole Allergy Unknown Redness Verified 03/29/19 09:16 [From Bactrim] trimethoprim [From Bactrim] Allergy Unknown Hives Verified 03/29/19 09:16 hydromorphone HCl Allergy Disorientat Verified 03/29/19 09:16 [From Dilaudid] ion CT contrast dye AdvReac Hives Uncoded 11/29/18 09:36 Home Meds: Home Meds Levothyroxine Sodium 50 mcg PO QAM 06/22/13 [History] Omeprazole [Prilosec] 20 mg PO ASDIRECTED 11/06/13 [History] Aspirin 81 mg PO DAILY 10/21/18 [History] Metoprolol Succinate [Kapspargo Sprinkle] 25 mg PO QAM 10/21/18 [History] Propafenone HCl [Propafenone] 150 mg PO DAILY 10/21/18 [History] Cetirizine HCl [Zyrtec] 10 mg PO DAILY 10/22/18 [History] Cholecalciferol (Vitamin D3) [Vitamin D3] 1,000 unit PO DAILY 10/22/18 [History] Biotin 1 mg PO DAILY 11/29/18 [History] Melatonin 1 mg PO BEDTIME 11/29/18 [History] Past Medical History HEENT History: Reports: Other (See Below) (right sided facial hemihypertrophy) Other HEENT History: wears glasses Cardiovascular History: Reports: Afib Other Cardiovascular History: takes Metoprolol to help control heart rate, has occasional A-Fib but converts on her own- last episode was in July. ALSO has episodes of atrial fibrillation when she overexerts herself. 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 Musculoskeletal History: Reports: Back Pain, Chronic (denies pain at this time.) , Other (See Below) Other Musculoskeletal History: 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 Neurological History: Reports: None Psychiatric History: Reports: None Endocrine/Metabolic History: Reports: Hypothyroidism, Obesity/BMI 30+ Hematologic History: Reports: Blood Transfusion(s) Immunologic History: Reports: None Oncologic (Cancer) History: Reports: None Dermatologic History: Reports: None - Infectious Disease History Infectious Disease History: Reports: None - Past Surgical History Head Surgeries/Procedures: Reports: None HEENT Surgical History: Reports: Naso-Sinus Surgery, Tonsillectomy GI Surgical History: Reports: Colonoscopy Female Surgical History: Reports: Cystoscopy Musculoskeletal Surgical History: Reports: Knee Replacement, Other (See Below) Other Musculoskeletal Surgeries/Procedures:: bilateral TKA, hx of femur stapling with brown removed, hx of reduction of thigh and buttocks on right side Social & Family History - Family History Family Medical History: Noncontributory Cardiac: Reports: RI - Caffeine Use Caffeine Use: Reports: Coffee ED ROS GENERAL - Review of Systems Review Of Systems: Comprehensive ROS is negative, except as noted in HPI. ED EXAM, GENERAL - Physical Exam Exam: See Below (See dictation) Course - Vital Signs Last Recorded V/S: Last Vital Signs Temp 35.5 C 03/29/19 09:09 Pulse 69 03/29/19 09:09 Resp 18 03/29/19 09:09 BP 156/70 H 03/29/19 09:09 Pulse Ox 97 03/29/19 09:09 - Orders/Labs/Meds Orders: Active Orders 24 hr Category Date Time Status Cardiac Monitoring [RC] . DIRECTED Care 03/29/19 09:15 Active EKG Documentation Completion [RC] STAT Care 03/29/19 09:14 Active LIPASE [CHEM] Stat Lab 03/29/19 10:53 Ordered UA RFX MIMA AND CULT IF INDIC [URIN] Stat Lab 03/29/19 09:13 Ordered Sodium Chloride 0.9% [Normal Saline] 1,000 ml Med 03/29/19 09:15 Active IV STAT Sodium Chloride 0.9% [Saline Flush] Med 03/29/19 09:13 Active 10 ml FLUSH ASDIRECTED PRN Sodium Chloride 0.9% [Saline Flush] Med 03/29/19 09:13 Active 2.5 ml FLUSH ASDIRECTED PRN Saline Lock Insert [OM.PC] Stat Oth 03/29/19 09:13 Ordered Medication Orders Sodium Chloride (Normal Saline) 1,000 mls @ 125 mls/hr IV STAT ROZ Last Admin: 03/29/19 09:18 Dose: 125 mls/hr Sodium Chloride (Saline Flush) 10 ml FLUSH ASDIRECTED PRN PRN Reason: Keep Vein Open Sodium Chloride (Saline Flush) 2.5 ml FLUSH ASDIRECTED PRN PRN Reason: Keep Vein Open Labs: Laboratory Tests 03/29/19 03/29/19 03/29/19 Range/Units 09:10 09:10 09:10 WBC 6.14 (4.0-11.0) K/uL RBC 4.40 (4.30-5.90) M/uL Hgb 13.1 (12.0-16.0) g/dL Hct 40.3 (36.0-46.0) % MCV 91.6 (80.0-98.0) fL MCH 29.8 (27.0-32.0) pg MCHC 32.5 (31.0-37.0) g/dL RDW Std Deviation 46.3 (28.0-62.0) fl RDW Coeff of Anil 14 (11.0-15.0) % Plt Count 258 (150-400) K/uL MPV 9.10 (7.40-12.00) fL Neut % (Auto) 32.3 L (48.0-80.0) % Lymph % (Auto) 49.0 H (16.0-40.0) % Gallia % (Auto) 14.3 (0.0-15.0) % Eos % (Auto) 3.9 (0.0-7.0) % Baso % (Auto) 0.5 (0.0-1.5) % Neut # (Auto) 2.0 (1.4-5.7) K/uL Lymph # (Auto) 3.0 H (0.6-2.4) K/uL Gall[place] # (Auto) 0.9 H (0.0-0.8) K/uL Eos # (Auto) 0.2 (0.0-0.7) K/uL Baso # (Auto) 0.0 (0.0-0.1) K/uL Nucleated RBC % 0.0 /100WBC Nucleated RBCs # 0 K/uL INR 1.00 D-Dimer, Quantitative (0.0-0.50) mg/L FEU Sodium 139 (136-145) mmol/L Potassium 3.7 (3.5-5.1) mmol/L Chloride 103 (98-107) mmol/L Carbon Dioxide 25.0 (21.0-32.0) mmol/L BUN 18 (7.0-18.0) mg/dL Creatinine 0.7 (0.6-1.0) mg/dL Est Cr Clr Drug Dosing 66.42 mL/min Estimated GFR (MDRD) > 60.0 ml/min Glucose 119 H (74-106) mg/dL Calcium 8.9 (8.5-10.1) mg/dL Total Bilirubin 0.6 (0.2-1.0) mg/dL AST 19 (15-37) IU/L ALT 23 (14-63) IU/L Alkaline Phosphatase 73 (46-116) U/L Troponin I < 0.050 (0.000-0.056) ng/mL B-Natriuretic Peptide (<100) PG/ML Total Protein 6.3 L (6.4-8.2) g/dL Albumin 3.3 L (3.4-5.0) g/dL Globulin 3.0 (2.6-4.0) g/dL Albumin/Globulin Ratio 1.1 (0.9-1.6) 03/29/19 03/29/19 Range/Units 09:10 09:10 WBC (4.0-11.0) K/uL RBC (4.30-5.90) M/uL Hgb (12.0-16.0) g/dL Hct (36.0-46.0) % MCV (80.0-98.0) fL MCH (27.0-32.0) pg MCHC (31.0-37.0) g/dL RDW Std Deviation (28.0-62.0) fl RDW Coeff of Anil (11.0-15.0) % Plt Count (150-400) K/uL MPV (7.40-12.00) fL Neut % (Auto) (48.0-80.0) % Lymph % (Auto) (16.0-40.0) % Gallia % (Auto) (0.0-15.0) % Eos % (Auto) (0.0-7.0) % Baso % (Auto) (0.0-1.5) % Neut # (Auto) (1.4-5.7) K/uL Lymph # (Auto) (0.6-2.4) K/uL Gall[place] # (Auto) (0.0-0.8) K/uL Eos # (Auto) (0.0-0.7) K/uL Baso # (Auto) (0.0-0.1) K/uL Nucleated RBC % /100WBC Nucleated RBCs # K/uL INR D-Dimer, Quantitative 0.20 (0.0-0.50) mg/L FEU Sodium (136-145) mmol/L Potassium (3.5-5.1) mmol/L Chloride (98-107) mmol/L Carbon Dioxide (21.0-32.0) mmol/L BUN (7.0-18.0) mg/dL Creatinine (0.6-1.0) mg/dL Est Cr Clr Drug Dosing mL/min Estimated GFR (MDRD) ml/min Glucose (74-106) mg/dL Calcium (8.5-10.1) mg/dL Total Bilirubin (0.2-1.0) mg/dL AST (15-37) IU/L ALT (14-63) IU/L Alkaline Phosphatase (46-116) U/L Troponin I (0.000-0.056) ng/mL B-Natriuretic Peptide 81 (<100) PG/ML Total Protein (6.4-8.2) g/dL Albumin (3.4-5.0) g/dL Globulin (2.6-4.0) g/dL Albumin/Globulin Ratio (0.9-1.6) Meds: Medications Generic Name Dose Route Start Last Admin Trade Name Freq PRN Reason Stop Dose Admin Sodium Chloride 1,000 mls @ 125 mls/hr 03/29/19 09:15 03/29/19 09:18 Normal Saline IV 125 mls/hr STAT ROZ Administration Sodium Chloride 10 ml 03/29/19 09:13 Saline Flush FLUSH ASDIRECTED PRN Keep Vein Open Sodium Chloride 2.5 ml 03/29/19 09:13 Saline Flush FLUSH ASDIRECTED PRN Keep Vein Open Discontinued Medications Generic Name Dose Route Start Last Admin Trade Name Freq PRN Reason Stop Dose Admin Aspirin 324 mg 03/30/19 09:00 Aspirin PO DAILY ROZ Aspirin 324 mg 03/29/19 09:40 03/29/19 09:50 Aspirin PO 03/29/19 09:41 324 mg ONETIME ONE Administration Aspirin Confirm 03/29/19 09:52 03/29/19 09:56 Aspirin Administered 03/29/19 09:53 Not Given Dose 81 mg .ROUTE .STK-MED ONE Morphine Sulfate 2 mg 03/29/19 09:13 03/29/19 09:18 Morphine IVPUSH 03/29/19 09:14 2 mg ONETIME ONE Administration Ondansetron HCl 4 mg 03/29/19 09:13 03/29/19 09:18 Zofran IVPUSH 03/29/19 09:14 4 mg ONETIME ONE Administration Departure - Departure Time of Disposition: 10:59 Disposition: Refer to Observation Condition: Good Clinical Impression: Shoulder pain, Back pain, Diaphoresis - Discharge Information Referrals: PCP,Unobtain [Primary Care Provider] - Sepsis Event Note - Focused Exam Vital Signs: Vital Signs Temp Pulse Resp BP Pulse Ox 03/29/19 09:09 35.5 C 69 18 156/70 H 97 - My Orders Last 24 Hours: My Active Orders 03/29/19 09:13 UA RFX MIMA AND CULT IF INDIC [URIN] Stat Sodium Chloride 0.9% [Saline Flush] 10 ml FLUSH ASDIRECTED PRN Sodium Chloride 0.9% [Saline Flush] 2.5 ml FLUSH ASDIRECTED PRN Saline Lock Insert [OM.PC] Stat 03/29/19 09:14 EKG Documentation Completion [RC] STAT 03/29/19 09:15 Cardiac Monitoring [RC] . DIRECTED Sodium Chloride 0.9% [Normal Saline] 1,000 ml IV STAT 03/29/19 10:53 LIPASE [CHEM] Stat - Assessment/Plan Last 24 Hours: My Active Orders 03/29/19 09:13 UA RFX MIMA AND CULT IF INDIC [URIN] Stat Sodium Chloride 0.9% [Saline Flush] 10 ml FLUSH ASDIRECTED PRN Sodium Chloride 0.9% [Saline Flush] 2.5 ml FLUSH ASDIRECTED PRN Saline Lock Insert [OM.PC] Stat 03/29/19 09:14 EKG Documentation Completion [RC] STAT 03/29/19 09:15 Cardiac Monitoring [RC] . DIRECTED Sodium Chloride 0.9% [Normal Saline] 1,000 ml IV STAT 03/29/19 10:53 LIPASE [CHEM] Stat
[2019-03-29] MEDS: Sodium Chloride 0.9% 1,000 ML IV SCH ×2 (09:18→14:52)
[2019-03-29] MEDS ORDERED: Aspirin 81 MG Tab.Chew PO ONE (09:40)
[2019-03-29] MEDS ORDERED: Aspirin 81 MG Tab.Chew ONE (09:52)
[2019-03-29 10:02] LABS: BLOOD UREA NITROGEN,BUN 18 mg/dL (7.0-18.0); CHLORIDE,CL 103 mmol/L (98-107); GLUCOSE RANDOM 119 mg/dL (74-106); POTASSIUM,K 3.7 mmol/L (3.5-5.1); SODIUM,NA 139 mmol/L (136-145)
--- NOTE | 2019-03-29 10:03 | CR ---
Chest: Frontal view of the chest was obtained utilizing AP technique. Comparison: Prior chest x-ray of 07/21/12. Heart size is generous but accentuated from AP technique. Tortuous thoracic aorta is seen. Lungs are clear with no acute parenchymal change. Bony structures are grossly intact. Impression: 1. Nothing acute is seen on AP chest x-ray. Diagnostic code #1 This report was dictated in [place] Standard Time
--- NOTE | 2019-03-29 13:37 | PCM.HP.2 ---
H&P History of Present Illness - General Date of Service: 03/29/19 Admit Problem/Dx: Admission Diagnosis/Problem Admission Diagnosis/Problem Shoulder pain - History of Present Illness Initial Comments - Free Text/Narative: 69 yo female with pmh of atrial fibrillation, lymphedema, and hypothyrodism who presented to the ED after become diaphoretic during the first part of a sharon scan stress test. She has a history of back pain and she stated this morning it was acting up and she was feeling a little run down as she was getting over a cold. She beleives she started to become clammy due to her back pain. In the ED she is feeling back to her normal self. She denies any chest pain, or lightheadedness. She was scheduled for the stress test due to complaints of shortness of breath with exertion. Dr. Funk who was running the test recommended observation on telemetry and to trend the cardiac enzymes. Lower back Pain Score (Numeric/FACES): 10 right shoulder Pain Score (Numeric/FACES): 3 - Related Data Allergies/Adverse Reactions: Allergies Allergy/AdvReac Type Severity Reaction Status Date / Time cefaclor [From Ceclor] Allergy Unknown Hives Verified 03/29/19 13:12 oxaprozin [From Daypro] Allergy Unknown Hives Verified 03/29/19 13:12 sulfamethoxazole Allergy Unknown Redness Verified 03/29/19 13:12 [From Bactrim] trimethoprim [From Bactrim] Allergy Unknown Hives Verified 03/29/19 13:12 hydromorphone HCl Allergy Disorientat Verified 03/29/19 13:12 [From Dilaudid] ion CT contrast dye AdvReac Hives Uncoded 03/29/19 13:12 Home Medications: Home Meds Levothyroxine Sodium 50 mcg PO QAM 06/22/13 [History] Omeprazole [Prilosec] 20 mg PO ASDIRECTED 11/06/13 [History] Aspirin 81 mg PO DAILY 10/21/18 [History] Metoprolol Succinate [Kapspargo Sprinkle] 25 mg PO QAM 10/21/18 [History] Propafenone HCl [Propafenone] 150 mg PO DAILY 10/21/18 [History] Cetirizine HCl [Zyrtec] 10 mg PO DAILY 10/22/18 [History] Cholecalciferol (Vitamin D3) [Vitamin D3] 1,000 unit PO DAILY 10/22/18 [History] Biotin 1 mg PO DAILY 11/29/18 [History] Melatonin 1 mg PO BEDTIME 11/29/18 [History] Past Medical History HEENT History: Reports: Other (See Below) Other HEENT History: wears glasses, Cardiovascular History: Reports: Afib Other Cardiovascular History: takes Metoprolol to help control heart rate, has occasional A-Fib but converts on her own- last episode was in July. ALSO has episodes of atrial fibrillation when she overexerts herself. Respiratory History: Reports: Sleep Apnea Other Respiratory History: has "mild" sleep apnea- uses CPAP Gastrointestinal History: Reports: Colon Polyp, Diverticulosis, GERD, Pancreatitis Other Gastrointestinal History: recent bout of pancreatitis-september 2018 with chest pain-cardiac studies were negative per patient Genitourinary History: Reports: UTI, Recurrent Other Genitourinary History: c/o of urinary frequency and urgency- often has microhematuria with no symptoms [employer] History: Reports: None Musculoskeletal History: Reports: Back Pain, Chronic, Other (See Below) Other Musculoskeletal History: 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 Neurological History: Reports: None Psychiatric History: Reports: None Endocrine/Metabolic History: Reports: Hypothyroidism, Obesity/BMI 30+ Hematologic History: Reports: Blood Transfusion(s) Immunologic History: Reports: None Oncologic (Cancer) History: Reports: None Dermatologic History: Reports: None - Infectious Disease History Infectious Disease History: Reports: Chicken Pox, Measles, Mumps - Past Surgical History Head Surgeries/Procedures: Reports: None HEENT Surgical History: Reports: Naso-Sinus Surgery, Tonsillectomy GI Surgical History: Reports: Colonoscopy Other GI Surgeries/Procedures: Last colonoscopy in november Female Surgical History: Reports: Cystoscopy Musculoskeletal Surgical History: Reports: Knee Replacement, Other (See Below) Other Musculoskeletal Surgeries/Procedures:: bilateral TKA, hx of femur stapling with brown removed, hx of reduction of thigh and buttocks on right side Social & Family History - Family History Family Medical History: Noncontributory Cardiac: Reports: AR - Tobacco Use Smoking Status *Q: Never Smoker Second Hand Smoke Exposure: No - Caffeine Use Caffeine Use: Reports: Coffee Other Caffeine Use: 3 glasses a day - Recreational Drug Use Recreational Drug Use: No H&P Review of Systems - Review of Systems: Review Of Systems: Comprehensive ROS is negative, except as noted in HPI. Exam - Exam Exam: See Below - Vital Signs Vital Signs: Last Vital Signs Temp 37.0 C 03/29/19 11:32 Pulse 98 03/29/19 11:32 Resp 18 03/29/19 11:32 BP 157/63 H 03/29/19 11:32 Pulse Ox 96 03/29/19 11:32 Weight: 104.5 kg - Exam General: Alert, Oriented HEENT: Mucosa Moist & [place] Lungs: Clear to Auscultation, Normal Respiratory Effort Cardiovascular: Regular Rate, Regular Rhythm GI/Abdominal Exam: Normal Bowel Sounds, Soft, Non-Tender Extremities: Pedal Edema (+2 edema of lwer extremeties) - Patient Data Lab Results Last 24 hrs: Laboratory Results - last 24 hr 03/29/19 03/29/19 03/29/19 Range/Units 09:10 09:10 09:10 WBC 6.14 (4.0-11.0) K/uL RBC 4.40 (4.30-5.90) M/uL Hgb 13.1 (12.0-16.0) g/dL Hct 40.3 (36.0-46.0) % MCV 91.6 (80.0-98.0) fL MCH 29.8 (27.0-32.0) pg MCHC 32.5 (31.0-37.0) g/dL RDW Std Deviation 46.3 (28.0-62.0) fl RDW Coeff of Anil 14 (11.0-15.0) % Plt Count 258 (150-400) K/uL MPV 9.10 (7.40-12.00) fL Neut % (Auto) 32.3 L (48.0-80.0) % Lymph % (Auto) 49.0 H (16.0-40.0) % Elbert % (Auto) 14.3 (0.0-15.0) % Eos % (Auto) 3.9 (0.0-7.0) % Baso % (Auto) 0.5 (0.0-1.5) % Neut # (Auto) 2.0 (1.4-5.7) K/uL Lymph # (Auto) 3.0 H (0.6-2.4) K/uL Elbert # (Auto) 0.9 H (0.0-0.8) K/uL Eos # (Auto) 0.2 (0.0-0.7) K/uL Baso # (Auto) 0.0 (0.0-0.1) K/uL Nucleated RBC % 0.0 /100WBC Nucleated RBCs # 0 K/uL INR 1.00 D-Dimer, Quantitative (0.0-0.50) mg/L FEU Sodium 139 (136-145) mmol/L Potassium 3.7 (3.5-5.1) mmol/L Chloride 103 (98-107) mmol/L Carbon Dioxide 25.0 (21.0-32.0) mmol/L BUN 18 (7.0-18.0) mg/dL Creatinine 0.7 (0.6-1.0) mg/dL Est Cr Clr Drug Dosing 66.42 mL/min Estimated GFR (MDRD) > 60.0 ml/min Glucose 119 H (74-106) mg/dL Calcium 8.9 (8.5-10.1) mg/dL Total Bilirubin 0.6 (0.2-1.0) mg/dL AST 19 (15-37) IU/L ALT 23 (14-63) IU/L Alkaline Phosphatase 73 (46-116) U/L Troponin I < 0.050 (0.000-0.056) ng/mL B-Natriuretic Peptide (<100) PG/ML Total Protein 6.3 L (6.4-8.2) g/dL Albumin 3.3 L (3.4-5.0) g/dL Globulin 3.0 (2.6-4.0) g/dL Albumin/Globulin Ratio 1.1 (0.9-1.6) Lipase (73-393) U/L 03/29/19 03/29/19 03/29/19 Range/Units 09:10 09:10 09:10 WBC (4.0-11.0) K/uL RBC (4.30-5.90) M/uL Hgb (12.0-16.0) g/dL Hct (36.0-46.0) % MCV (80.0-98.0) fL MCH (27.0-32.0) pg MCHC (31.0-37.0) g/dL RDW Std Deviation (28.0-62.0) fl RDW Coeff of Anil (11.0-15.0) % Plt Count (150-400) K/uL MPV (7.40-12.00) fL Neut % (Auto) (48.0-80.0) % Lymph % (Auto) (16.0-40.0) % Elbert % (Auto) (0.0-15.0) % Eos % (Auto) (0.0-7.0) % Baso % (Auto) (0.0-1.5) % Neut # (Auto) (1.4-5.7) K/uL Lymph # (Auto) (0.6-2.4) K/uL Elbert # (Auto) (0.0-0.8) K/uL Eos # (Auto) (0.0-0.7) K/uL Baso # (Auto) (0.0-0.1) K/uL Nucleated RBC % /100WBC Nucleated RBCs # K/uL INR D-Dimer, Quantitative 0.20 (0.0-0.50) mg/L FEU Sodium (136-145) mmol/L Potassium (3.5-5.1) mmol/L Chloride (98-107) mmol/L Carbon Dioxide (21.0-32.0) mmol/L BUN (7.0-18.0) mg/dL Creatinine (0.6-1.0) mg/dL Est Cr Clr Drug Dosing mL/min Estimated GFR (MDRD) ml/min Glucose (74-106) mg/dL Calcium (8.5-10.1) mg/dL Total Bilirubin (0.2-1.0) mg/dL AST (15-37) IU/L ALT (14-63) IU/L Alkaline Phosphatase (46-116) U/L Troponin I (0.000-0.056) ng/mL B-Natriuretic Peptide 81 (<100) PG/ML Total Protein (6.4-8.2) g/dL Albumin (3.4-5.0) g/dL Globulin (2.6-4.0) g/dL Albumin/Globulin Ratio (0.9-1.6) Lipase 155 (73-393) U/L Result Diagrams: 03/29/19 09:10 03/29/19 09:10 Sepsis Event Note - Evaluation Sepsis Screening Result: No Definite Risk - Focused Exam Vital Signs: Vital Signs Temp Pulse Resp BP Pulse Ox 03/29/19 11:32 37.0 C 98 18 157/63 H 96 03/29/19 11:00 71 140/68 97 03/29/19 10:30 69 17 132/69 98 03/29/19 10:00 72 147/81 H 97 03/29/19 09:09 35.5 C 69 18 156/70 H 97 Date Exam was Performed: 03/29/19 Time Exam was Performed: 13:31 Problem List Initiated/Reviewed/Updated: Yes Orders Last 24hrs: Active Orders 24 hr Category Date Time Status Patient Status [ADT] Stat ADT 03/29/19 11:00 Active Antiembolic Devices [RC] PER UNIT ROUTINE Care 03/29/19 13:31 Ordered Cardiac Monitoring [RC] . DIRECTED Care 03/29/19 09:15 Active EKG Documentation Completion [RC] STAT Care 03/29/19 09:14 Active Oxygen Therapy [RC] PRN Care 03/29/19 13:30 Ordered Telemetry Monitoring [Cardiac Monitoring] [RC] Q8H Care 03/29/19 11:15 Active Up ad Mary [RC] ASDIRECTED Care 03/29/19 13:30 Ordered VTE/DVT Education [RC] PER UNIT ROUTINE Care 03/29/19 13:30 Ordered Vital Signs [RC] Q4H Care 03/29/19 13:30 Ordered Regular Diet [DIET] Diet 03/29/19 Breakfast Ordered TROPONIN I [CHEM] Q6H Lab 03/29/19 15:00 Ordered TROPONIN I [CHEM] Q6H Lab 03/29/19 21:00 Ordered UA RFX MIMA AND CULT IF INDIC [URIN] Stat Lab 03/29/19 09:13 Ordered Aspirin Med 03/30/19 09:00 Ordered 81 mg PO DAILY Biotin [Biotin] Med 03/30/19 09:00 Ordered 1 mg PO DAILY Cetirizine [ZyrTEC] Med 03/30/19 09:00 Ordered 10 mg PO DAILY Levothyroxine [Synthroid] Med 03/30/19 09:00 Ordered 50 mcg PO QAM Melatonin [Melatonin] Med 03/29/19 21:00 Ordered 1 mg PO BEDTIME Metoprolol Succinate [Kapspargo Sprinkle] Med 03/29/19 13:30 Ordered 25 mg PO DAILY Omeprazole Med 03/29/19 13:30 Ordered 20 mg PO ASDIRECTED Propafenone [Rythmol] Med 03/30/19 09:00 Ordered 150 mg PO DAILY Sodium Chloride 0.9% [Normal Saline] 1,000 ml Med 03/29/19 09:15 Active IV STAT Sodium Chloride 0.9% [Saline Flush] Med 03/29/19 09:13 Active 10 ml FLUSH ASDIRECTED PRN Sodium Chloride 0.9% [Saline Flush] Med 03/29/19 09:13 Active 2.5 ml FLUSH ASDIRECTED PRN Saline Lock Insert [OM.PC] Stat Oth 03/29/19 09:13 Ordered Sequential Compression Device [OM.PC] Per Unit Routine Oth 03/29/19 13:31 Ordered Resuscitation Status Routine Resus Stat 03/29/19 13:30 Ordered Medication Orders Aspirin (Aspirin) 81 mg PO DAILY ROZ Cetirizine HCl (Zyrtec) 10 mg PO DAILY ROZ Sodium Chloride (Normal Saline) 1,000 mls @ 125 mls/hr IV STAT ROZ Last Admin: 03/29/19 09:18 Dose: 125 mls/hr Levothyroxine Sodium (Synthroid) 50 mcg PO QAM ROZ Non-Formulary Medication (Biotin [Biotin]) 1 mg PO DAILY ROZ Non-Formulary Medication (Melatonin [Melatonin]) 1 mg PO BEDTIME ROZ Non-Formulary Medication (Metoprolol Succinate [Kapspargo Sprinkle]) 25 mg PO DAILY ROZ Omeprazole (Omeprazole) 20 mg PO ASDIRECTED ROZ Propafenone HCl (Rythmol) 150 mg PO DAILY ROZ Sodium Chloride (Saline Flush) 10 ml FLUSH ASDIRECTED PRN PRN Reason: Keep Vein Open Sodium Chloride (Saline Flush) 2.5 ml FLUSH ASDIRECTED PRN PRN Reason: Keep Vein Open Assessment/Plan Comment:: 69 yo female who became diaphoretic during stress testing. We will monitor overnight on telemetry and rule out acute coronary syndrome with serial negative cardiac enzymes.
[2019-03-29] MEDS: Metoprolol Succinate 25 MG Tab.ER PO SCH (13:50)
[2019-03-29] MEDS ORDERED: Patient's Own Medication 1 Each PO SCH (21:00)
[2019-03-30] MEDS ORDERED: Levothyroxine 50 MCG Tab PO SCH (07:30)
[2019-03-30] MEDS ORDERED: Omeprazole 20 MG Cap.CR PO SCH (07:30)
[2019-03-30] MEDS: Metoprolol Succinate 25 MG Tab.ER PO SCH (08:58)
[2019-03-30] MEDS ORDERED: Biotin [Biotin] 1 MG PO SCH (09:00)
[2019-03-30] MEDS ORDERED: Aspirin 81 MG Tab.Chew PO SCH ×2 (09:00)
[2019-03-30] MEDS ORDERED: Cetirizine 10 MG Tab PO SCH (09:00)
[2019-03-30 11:49] VITALS: BP 141/73; PULSE 72
--- NOTE | 2019-03-30 12:07 | PCM.DCSUM1 ---
Discharge Summary - Hospital Course HPI Initial Comments: 69 yo female with pmh of atrial fibrillation, lymphedema, and hypothyroidism who presented to the ED after become diaphoretic during the first part of a sharon scan stress test. She has a history of back pain and she stated this morning it was acting up and she was feeling a little run down as she was getting over a cold. She believes she started to become clammy due to her back pain. In the ED she is feeling back to her normal self. She denies any chest pain, or lightheadedness. She was scheduled for the stress test due to complaints of shortness of breath with exertion. Dr. Funk who was running the test recommended observation on telemetry and to trend the cardiac enzymes. Overnight cardiac enzymes were negative, tele was unremarkable, patient was discharged the next day and asked to fu with PCP and cardiology on outpatient basis for a possible repeat stress test. - Discharge Data Discharge Date: 03/30/19 Discharge Disposition: Home, Self-Care 01 Condition: Stable - Referral to Home Health Primary Care Physician: PCP Unobtainable - Discharge Plan Home Medications: Home Meds Levothyroxine Sodium 50 mcg PO QAM 06/22/13 [History] Omeprazole [Prilosec] 20 mg PO ASDIRECTED 11/06/13 [History] Aspirin 81 mg PO DAILY 10/21/18 [History] Metoprolol Succinate [Kapspargo Sprinkle] 25 mg PO QAM 10/21/18 [History] Propafenone HCl [Propafenone] 150 mg PO DAILY 10/21/18 [History] Cholecalciferol (Vitamin D3) [Vitamin D3] 1,000 unit PO DAILY 10/22/18 [History] Melatonin 1 mg PO BEDTIME 11/29/18 [History] Rivaroxaban [Xarelto] 20 mg PO WITHDINNER 03/29/19 [History] Cetirizine [ZyrTEC] 10 mg PO DAILY tablet 03/30/19 [Rx] Patient's Own Medication [Ptom] 1 each PO DAILY each 03/30/19 [Rx] Patient Handouts: Shoulder Pain Referrals: Jayleen Mcclain MD [Physician] - 04/21/19 10:00 am Rachel Felipe MD [Ordering Only Provider] - 04/10/19 1:30 pm - Discharge Summary/Plan Comment DC Time >30 min.: No - Patient Data Vitals - Most Recent: Last Vital Signs Temp 36.7 C 03/30/19 11:47 Pulse 72 03/30/19 11:47 Resp 16 03/30/19 11:47 BP 141/73 H 03/30/19 11:47 Pulse Ox 97 03/30/19 11:47 Weight - Most Recent: 104.5 kg I&O - Last 24 hours: Intake & Output 03/29/19 03/30/19 03/30/19 22:59 06:59 14:59 Intake Total 1607 200 Output Total 2025 Balance -418 200 Lab Results - Last 24 hrs: Laboratory Results - last 24 hr 03/29/19 03/29/19 03/29/19 Range/Units 09:13 15:00 21:08 Troponin I < 0.050 < 0.050 (0.000-0.056) ng/mL Urine Color YELLOW Urine Appearance CLEAR Urine pH 6.0 (5.0-8.0) Ur Specific [place] 1.020 (1.001-1.035) Urine Protein NEGATIVE (NEGATIVE) mg/dL Urine Glucose (UA) NEGATIVE (NEGATIVE) mg/dL Urine Ketones NEGATIVE (NEGATIVE) mg/dL Urine Occult Blood NEGATIVE (NEGATIVE) Urine Nitrite NEGATIVE (NEGATIVE) Urine Bilirubin NEGATIVE (NEGATIVE) Urine Urobilinogen 0.2 (<2.0) EU/dL Ur Leukocyte Esterase NEGATIVE (NEGATIVE) Med Orders - Current: Current Medications Aspirin (Aspirin) 81 mg PO DAILY [facility] Last Admin: 03/30/19 08:57 Dose: 81 mg Cetirizine HCl (Zyrtec) 10 mg PO DAILY [facility] Last Admin: 03/30/19 08:58 Dose: 10 mg Levothyroxine Sodium (Synthroid) 50 mcg PO ACBREAKFAST [facility] Last Admin: 03/30/19 06:32 Dose: 50 mcg Metoprolol Succinate (Toprol Xl) 25 mg PO DAILY [facility] Last Admin: 03/30/19 08:58 Dose: 25 mg Omeprazole (Omeprazole) 20 mg PO ACBREAKFAST [facility] Last Admin: 03/30/19 06:32 Dose: 20 mg Biotin [Biotin] 1 Mg 1 each PO DAILY [facility] Last Admin: 03/30/19 09:05 Dose: Not Given Patient Own Medication (Ptom) 1 each PO BEDTIME [facility] Last Admin: 03/29/19 21:33 Dose: Not Given Propafenone HCl (Rythmol) 150 mg PO BEDTIME [facility] Last Admin: 03/29/19 21:32 Dose: 150 mg Sodium Chloride (Saline Flush) 10 ml FLUSH ASDIRECTED PRN PRN Reason: Keep Vein Open Sodium Chloride (Saline Flush) 2.5 ml FLUSH ASDIRECTED PRN PRN Reason: Keep Vein Open Discontinued Medications Aspirin (Aspirin) 324 mg PO DAILY [facility] Aspirin (Aspirin) 324 mg PO ONETIME ONE Stop: 03/29/19 09:41 Last Admin: 03/29/19 09:50 Dose: 324 mg Aspirin (Aspirin) Confirm Administered Dose 81 mg .ROUTE .STK-MED ONE Stop: 03/29/19 09:53 Last Admin: 03/29/19 09:56 Dose: Not Given Sodium Chloride (Normal Saline) 1,000 mls @ 125 mls/hr IV STAT [facility] Last Admin: 03/29/19 14:52 Dose: 125 mls/hr Morphine Sulfate (Morphine) 2 mg IVPUSH ONETIME ONE Stop: 03/29/19 09:14 Last Admin: 03/29/19 09:18 Dose: 2 mg Ondansetron HCl (Zofran) 4 mg IVPUSH ONETIME ONE Stop: 03/29/19 09:14 Last Admin: 03/29/19 09:18 Dose: 4 mg Propafenone HCl (Rythmol) 150 mg PO DAILY [facility]
== END 2019-03-30 15:00 | disposition home or self-care (01) ==
LOC: MW.ED 09:04 → MW.MS 11:00
PROVIDERS: ADMIT Internal Medicine; ATTEND Internal Medicine
DX: R61 Generalized hyperhidrosis (principal); G89.29 Other chronic pain; M54.5 Low back pain; M25.511 Pain in right shoulder; I48.91 Unspecified atrial fibrillation; E03.9 Hypothyroidism, unspecified; G47.30 Sleep apnea, unspecified; K21.9 Gastro-esophageal reflux disease without esophagitis; I89.0 Lymphedema, not elsewhere classified; E66.9 Obesity, unspecified; Z68.39 Body mass index [BMI] 39.0-39.9, adult; Z79.82 Long term (current) use of aspirin; Z79.899 Other long term (current) drug therapy; Z79.01 Long term (current) use of anticoagulants; Z88.2 Allergy status to sulfonamides; Z88.1 Allergy status to other antibiotic agents; Z88.5 Allergy status to narcotic agent; Z88.6 Allergy status to analgesic agent; Z91.041 Radiographic dye allergy status; Z99.89 Dependence on other enabling machines and devices
CPT/HCPCS: 36415; 71045; 80053; 81003; 83690; 83880; 84484; 85025; 85379; 85610; 93005; A9270; J2270; J2405; J7030; 96361; 96374; 96375; 99284; 99284-25; G0378

== ENCOUNTER 2019-05-16 11:57 | Emergency (ER) | payer MEDICARE, OTHER ==
[2019-05-16] MEDS ORDERED: Diltiazem 25 MG/5 ML SDV IVPUSH ONE ×2 (12:22→13:32)
--- NOTE | 2019-05-16 12:37 | EDM.PDOC ---
ED [facility] GENERAL MEDICAL PROBLEM - General Chief Complaint: Cardiovascular Problem Stated Complaint: HIGH BP Time Seen by Provider: 05/16/19 12:34 Source of Information: Reports: Patient History Limitations: Reports: No Limitations - History of Present Illness INITIAL COMMENTS - FREE TEXT/NARRATIVE: Patient is a 69-year-old female with a past medical history of atrial fibrillation and possible coronary artery disease presenting with a chief complaint of palpitations. Patient states that the palpitations started earlier around 10 AM. Patient states she was doing some work when she felt the symptoms. Patient denies feeling any dizziness, chest pain, shortness of breath , syncope. Palpitations continued and patient checked her Apple Watch and noticed that she was in atrial fibrillation. Patient states that she has had this before and was just seen by cardiology yesterday who want to do an angiogram for her heart. Pmhx: Per chart Pshx: None Family Hx: noncontributory Smoking history? no Etoh use? none Drug use? none In addition to that documented in the HPI above, the additional ROS was obtained : Constitutional: Denies fevers or chills Eyes: Denies vision changes ENMT: Denies sore throat CV: Denies chest pain Resp: Denies SOB GI: Denies vomiting or diarrhea : Denies painful urination MSK: Denies recent trauma Skin: Denies new rashes Neuro: Denies new numbness or tingling or weakness Endocrine: Denies unexpected weight loss Heme: Denies bleeding disorders I have reviewed the triage vital signs Const: Well nourished, well developed, appears stated age Eyes: PERRL, no conjunctival injection HENT: NCAT, Neck supple without meningismus CV: Irregularly irregular and tachycardic, Warm, well-perfused extremities RESP: CTAB, Unlabored respiratory effort GI: soft, non-tender, non-distended, no masses MSK: Bilateral lower extremity lymphedema. no gross deformities appreciated Skin: Warm, dry. No rashes Neuro: Alert, telephone service adviser II-XII grossly intact. Sensation and motor function of extremities grossly intact. Psych: Appropriate mood and affect Assessment and plan: Patient 61-year-old female presenting with palpitations demonstrating atrial fibrillation with a rate in the 150s on arrival to the emergency department. Patient was hemodynamically stable and was given 20 mg of Cardizem with control of rate. Patient's blood pressure is hemodynamically stable patient's labs reviewed and were negative. 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 Smith who instructed her to increase her doses of metoprolol to 50 mg twice daily. I spoke with Dr. Smith's nurse over the phone who relayed the message to the doctor and confirmed that her dose should be 50 mg twice daily which is an increase from what she was taking previously. It sounds like the patient did not take the appropriate dose today Her rate is under control without a changes and labs or evidence of heart failure the patient will be able to be discharged home and follow-up as an outpatient. Patient will be instructed not to take any amiodarone and to give the doctor a call for follow-up visits. - Related Data Allergies Allergy/AdvReac Type Severity Reaction Status Date / Time cefaclor [From Ceclor] Allergy Unknown Hives Verified 05/16/19 12:02 oxaprozin [From Daypro] Allergy Unknown Hives Verified 05/16/19 12:02 sulfamethoxazole Allergy Unknown Redness Verified 05/16/19 12:02 [From Bactrim] trimethoprim [From Bactrim] Allergy Unknown Hives Verified 05/16/19 12:02 hydromorphone HCl Allergy Disorientat Verified 05/16/19 12:02 [From Dilaudid] ion CT contrast dye AdvReac Hives Uncoded 05/16/19 12:02 Home Meds: Home Meds Levothyroxine Sodium 50 mcg PO QAM 06/22/13 [History] Omeprazole [Prilosec] 20 mg PO ASDIRECTED 11/06/13 [History] Aspirin 81 mg PO DAILY 10/21/18 [History] Metoprolol Succinate [Kapspargo Sprinkle] 25 mg PO QAM 10/21/18 [History] Cholecalciferol (Vitamin D3) [Vitamin D3] 1,000 unit PO DAILY 10/22/18 [History] Rivaroxaban [Xarelto] 20 mg PO WITHDINNER 03/29/19 [History] Cetirizine [ZyrTEC] 10 mg PO DAILY tablet 03/30/19 [Rx] Patient's Own Medication [Ptom] 1 each PO DAILY each 03/30/19 [Rx] Furosemide [Lasix] 40 mg PO DAILY 05/16/19 [History] Rosuvastatin [Crestor] 20 mg PO DAILY 05/16/19 [History] Past Medical History HEENT History: Reports: Other (See Below) Other HEENT History: wears glasses, Cardiovascular History: Reports: Afib Other Cardiovascular History: takes Metoprolol to help control heart rate, has occasional A-Fib but converts on her own- last episode was in July. ALSO has episodes of atrial fibrillation when she overexerts herself. 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: Reports: None Musculoskeletal History: Reports: Back Pain, Chronic, Other (See Below) Other Musculoskeletal History: 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 Neurological History: Reports: None Psychiatric History: Reports: None Endocrine/Metabolic History: Reports: Hypothyroidism, Obesity/BMI 30+ Hematologic History: Reports: Blood Transfusion(s) Immunologic History: Reports: None Oncologic (Cancer) History: Reports: None Dermatologic History: Reports: None - Infectious Disease History Infectious Disease History: Reports: Chicken Pox, Measles, Mumps - Past Surgical History Head Surgeries/Procedures: Reports: None HEENT Surgical History: Reports: Naso-Sinus Surgery, Tonsillectomy GI Surgical History: Reports: Colonoscopy Other GI Surgeries/Procedures: Last colonoscopy in november Female Surgical History: Reports: Cystoscopy Musculoskeletal Surgical History: Reports: Knee Replacement, Other (See Below) Other Musculoskeletal Surgeries/Procedures:: bilateral TKA, hx of femur stapling with brown removed, hx of reduction of thigh and buttocks on right side Social & Family History - Family History Family Medical History: Noncontributory Cardiac: Reports: [place] - Tobacco Use Smoking Status *Q: Never Smoker - Caffeine Use Caffeine Use: Reports: Coffee Other Caffeine Use: 3 glasses a day - Recreational Drug Use Recreational Drug Use: No ED ROS GENERAL - Review of Systems Review Of Systems: See Below ED EXAM, GENERAL - Physical Exam Exam: See Below Course - Vital Signs Last Recorded V/S: Last Vital Signs Temp 36.4 C 05/16/19 12:05 Pulse 92 05/16/19 14:12 Resp 18 05/16/19 12:05 BP 112/73 05/16/19 14:12 Pulse Ox 97 05/16/19 14:12 - Orders/Labs/Meds Orders: Active Orders 24 hr Category Date Time Status Cardiac Monitoring [RC] . DIRECTED Care 05/16/19 12:06 Active EKG Documentation Completion [RC] STAT Care 05/16/19 12:06 Active EKG Documentation Completion [RC] STAT Care 05/16/19 14:11 Active Labs: Laboratory Tests 05/16/19 05/16/19 05/16/19 Range/Units 12:01 12:01 12:01 WBC 7.46 (4.0-11.0) K/uL RBC 4.58 (4.30-5.90) M/uL Hgb 13.7 (12.0-16.0) g/dL Hct 42.0 (36.0-46.0) % MCV 91.7 (80.0-98.0) fL MCH 29.9 (27.0-32.0) pg MCHC 32.6 (31.0-37.0) g/dL RDW Std Deviation 44.9 (28.0-62.0) fl RDW Coeff of Anil 13 (11.0-15.0) % Plt Count 282 (150-400) K/uL MPV 9.20 (7.40-12.00) fL Neut % (Auto) 51.3 (48.0-80.0) % Lymph % (Auto) 36.7 (16.0-40.0) % [place] % (Auto) 9.8 (0.0-15.0) % Eos % (Auto) 1.7 (0.0-7.0) % Baso % (Auto) 0.5 (0.0-1.5) % Neut # (Auto) 3.8 (1.4-5.7) K/uL Lymph # (Auto) 2.7 H (0.6-2.4) K/uL [place] # (Auto) 0.7 (0.0-0.8) K/uL Eos # (Auto) 0.1 (0.0-0.7) K/uL Baso # (Auto) 0.0 (0.0-0.1) K/uL Nucleated RBC % 0.0 /100WBC Nucleated RBCs # 0 K/uL Sodium 135 L (136-145) mmol/L Potassium 3.9 (3.5-5.1) mmol/L Chloride 98 (98-107) mmol/L Carbon Dioxide 26.4 (21.0-32.0) mmol/L BUN 18 (7.0-18.0) mg/dL Creatinine 0.8 (0.6-1.0) mg/dL Est Cr Clr Drug Dosing 58.12 mL/min Estimated GFR (MDRD) > 60.0 ml/min Glucose 110 H (74-106) mg/dL Calcium 9.0 (8.5-10.1) mg/dL Total Bilirubin 0.7 (0.2-1.0) mg/dL AST 25 (15-37) IU/L ALT 23 (14-63) IU/L Alkaline Phosphatase 67 (46-116) U/L Troponin I < 0.050 (0.000-0.056) ng/mL B-Natriuretic Peptide 137 H (<100) PG/ML Total Protein 6.3 L (6.4-8.2) g/dL Albumin 3.6 (3.4-5.0) g/dL Globulin 2.7 (2.6-4.0) g/dL Albumin/Globulin Ratio 1.3 (0.9-1.6) Meds: Medications Discontinued Medications Generic Name Dose Route Start Last Admin Trade Name Freq PRN Reason Stop Dose Admin Diltiazem HCl 10 mg 05/16/19 12:22 05/16/19 12:39 Diltiazem IVPUSH 05/16/19 12:23 10 mg ONETIME ONE Administration Diltiazem HCl 10 mg 05/16/19 13:32 05/16/19 13:41 Diltiazem IVPUSH 05/16/19 13:33 10 mg ONETIME ONE Administration Departure - Departure Time of Disposition: 14:56 Disposition: Home, Self-Care 01 Clinical Impression: Atrial fibrillation Instructions: Atrial Fibrillation Referrals: PCP,Unobtain [Primary Care Provider] - Forms: ED Department Discharge Additional Instructions: The following information is given to patients seen in the emergency department who are being discharged to home. This information is to outline your options for follow-up care. We provide all patients seen in our emergency department with a follow-up referral. The need for follow-up, as well as the timing and circumstances, are variable depending upon the specifics of your emergency department visit. If you don't have a primary care physician on staff, we will provide you with a referral. We always advise you to contact your personal physician following an emergency department visit to inform them of the circumstance of the visit and for follow-up with them and/or the need for any referrals to a consulting specialist. The emergency department will also refer you to a specialist when appropriate. This referral assures that you have the opportunity for follow-up care with a specialist. All of these measure are taken in an effort to provide you with optimal care, which includes your follow-up. Under all circumstances we always encourage you to contact your private physician who remains a resource for coordinating your care. When calling for follow-up care, please make the office aware that this follow-up is from your recent emergency room visit. If for any reason you are refused follow-up, please contact the [facility] Emergency Department at and asked to speak to the emergency department charge nurse. Sepsis Event Note - Evaluation Sepsis Screening Result: No Definite Risk - Focused Exam Vital Signs: Vital Signs Temp Pulse Resp BP Pulse Ox 05/16/19 14:12 92 112/73 97 05/16/19 13:57 82 111/66 05/16/19 13:43 101 H 115/58 L 98 05/16/19 13:16 105 H 132/73 96 05/16/19 13:01 115 H 126/76 05/16/19 12:53 113 H 116/86 93 L 05/16/19 12:38 154 H 146/76 H 05/16/19 12:30 180 H 127/83 96 05/16/19 12:05 36.4 C 129 H 18 150/71 H 97 Date Exam was Performed: 05/16/19 Time Exam was Performed: 14:56 - My Orders Last 24 Hours: My Active Orders 05/16/19 12:06 Cardiac Monitoring [RC] . DIRECTED EKG Documentation Completion [RC] STAT 05/16/19 14:11 EKG Documentation Completion [RC] STAT - Assessment/Plan Last 24 Hours: My Active Orders 05/16/19 12:06 Cardiac Monitoring [RC] . DIRECTED EKG Documentation Completion [RC] STAT 05/16/19 14:11 EKG Documentation Completion [RC] STAT
[2019-05-16 12:46] LABS: BLOOD UREA NITROGEN,BUN 18 mg/dL (7.0-18.0); CARBON DIOXIDE,CO2 26.4 mmol/L (21.0-32.0); CHLORIDE,CL 98 mmol/L (98-107); GLUCOSE RANDOM 110 mg/dL (74-106); POTASSIUM,K 3.9 mmol/L (3.5-5.1); SODIUM,NA 135 mmol/L (136-145)
--- NOTE | 2019-05-16 13:03 | CR ---
Chest: Portable view of the chest was obtained. Comparison: Prior chest x-ray of 03/29/19. Heart size is generous but accentuated portable technique. Tortuous thoracic aorta is noted. Lungs are clear with no acute parenchymal change. Bony structures are grossly intact. Impression: 1. Nothing acute is appreciated on portable chest x-ray. Diagnostic code #2 This report was dictated in MDT
[2019-05-16 14:57] VITALS: BP 114/68; PULSE 68
== END 2019-05-16 15:07 | disposition home or self-care (01) ==
LOC: MW.ED 11:57
DX: I48.91 Unspecified atrial fibrillation (principal); K21.9 Gastro-esophageal reflux disease without esophagitis; E03.9 Hypothyroidism, unspecified; E66.9 Obesity, unspecified; Z68.37 Body mass index [BMI] 37.0-37.9, adult; Z88.8 Allergy status to other drugs, medicaments and biological substances; Z88.2 Allergy status to sulfonamides; Z91.041 Radiographic dye allergy status; Z79.899 Other long term (current) drug therapy; Z79.82 Long term (current) use of aspirin; Z79.01 Long term (current) use of anticoagulants
CPT/HCPCS: 36415; 71045; 80053; 83880; 84484; 85025; 93005; 96374; 96376; 99285; J3490